=== PATIENT | male | born 1950 | race American Indian/Alaskan Native ===

== ENCOUNTER 2017-01-16 10:07 | Inpatient (IN) | payer MEDICARE ==
[2017-01-16] MEDS ORDERED: MILK OF MAGNESIA PO PRN (10:15)
[2017-01-16] MEDS ORDERED: DULCOLAX PR PRN (10:15)
[2017-01-16] MEDS ORDERED: ZOFRAN IV PRN (10:15)
[2017-01-16] MEDS ORDERED: VANCOMYCIN/NS 1 GM/250 ML 1 GM/250 ML BAG IV SCH (12:00)
[2017-01-16] MEDS ORDERED: ZOSYN/NS 4.5GM/100ML 4.5 GM/100 ML VIAL IV SCH (14:00)
[2017-01-16 15:52] LABS: Basophils % (Auto) 0.5 % (0.0-1.8); Eosinophils % (Auto) 1.4 % (0.0-4.3); Hematocrit 26.4 % (35.5-45.6); Hemoglobin 8.6 gm/dl (11.8-15.2); Mean Corpuscular HGB Conc 33 % (32-34); Mean Corpuscular Hemoglobin 29 pg (28-32); Mean Corpuscular Volume 89 fl (84-94); Platelet Count 277 K/mm3 (140-440); Red Blood Count 2.97 M/mm3 (3.65-5.03); Red Cell Distribution Width 17.2 % (13.2-15.2); White Blood Count 5.9 K/mm3 (4.5-11.0)
[2017-01-16] MEDS ORDERED: VANCOMYCIN 1,500 MG in NACL 0.9% 500 ML 500 ML IV ONE ×2 (16:00→20:00)
[2017-01-16 16:02] LABS: INR 1.16 (0.87-1.13); Partial Thromboplastin Time 29.7 Sec. (24.2-36.6)
[2017-01-16 16:13] LABS: Albumin 3.4 g/dL (3.9-5); Albumin/Globulin Ratio 0.8 %; BUN/Creatinine Ratio 3.63; Bilirubin,Total 0.4 mg/dL (0.1-1.2); Calcium 8.9 mg/dL (8.4-10.2); Chloride 92.4 mmol/L (98-107); Potassium 3.5 mmol/L (3.6-5.0); Total Protein 7.7 g/dL (6.3-8.2)
[2017-01-16] MEDS ORDERED: NACL ONE (16:38)
[2017-01-16] MEDS ORDERED: ZOSYN/NS 2.25 GM/50ML 2.25 GM/50 ML BAG IV SCH (17:00)
--- NOTE | 2017-01-16 17:56 | Cat Scan Report ---
FINAL REPORT EXAM: CT LOWER EXTREMITY RT W CON HISTORY: r/o gas gangrene TECHNIQUE: Serial axial images through the feet with coronal and sagittal reconstruction of right foot and coronal reconstruction of the left foot. PRIORS: None. FINDINGS: The distal aspect of the left toes are cropped from the topography of the study. Atherosclerotic calcifications are noted bilaterally. No drainable fluid collection is identified in the soft tissues. Small amount of gas density is seen beneath nail of the right great toe, but otherwise no gas collections are seen in the soft tissues. No acute fracture or subluxation is identified. There is indistinct cortical bone in superior lateral aspect of the proximal 1st phalanx. IMPRESSION: 1. Small amount of gas is seen beneath the nail of right great toe. No other gas collections are identified. 2. Indistinct cortex is noted in proximal portion of proximal phalanx of right great toe. Possibility of osteomyelitis is not excluded. 3. Diffuse atherosclerotic changes are noted.
[2017-01-16] MEDS: TYLENOL PO PRN (18:06)
--- NOTE | 2017-01-16 20:05 | Consultation ---
History of Present Illness - Reason for Consult Consult date: 01/16/17 Medical management Requesting physician: OLGA LIDIA SANCHEZ - History of Present Illness 66 y/o AAF admitted for pre gangrene changes and rest pain in rt foot.Patient to get Angiography and possible stents or by pass in RLE.Pain is 8/10 in RLE and unable to stand.No fever /chills Past History Past Medical History: ESRD, GERD, hypertension, hyperlipidemia Past Surgical History: Other Social history: lives with family, smoking (1 ppd) Family history: hypertension Medications and Allergies Allergies Allergy/AdvReac Type Severity Reaction Status Date / Time No Known Allergies Allergy Unverified 01/16/17 10:30 Home Medications Medication Instructions Recorded Confirmed Last Taken Type Coreg 25 mg PO BID 01/16/17 01/16/17 01/16/17 09:00 History Donepezil [Aricept] 5 mg PO HS 01/16/17 01/16/17 01/15/17 21:00 History Ibuprofen [Motrin 800 MG tab] 800 mg PO Q6H PRN 01/16/17 01/16/17 Unknown History Isosorbide Dinitrate 20 mg PO DAILY 01/16/17 01/16/17 01/16/17 09:00 History Omeprazole 40 mg PO BIDAC 01/16/17 01/16/17 01/16/17 09:00 History Renvela 800 mg PO TID 01/16/17 01/16/17 01/16/17 09:00 History 800 mg Simvastatin [Zocor TAB] 20 mg PO QHS 01/16/17 01/16/17 01/15/17 21:00 History Verapamil 120 mg PO DAILY 01/16/17 01/16/17 01/16/17 09:00 History Active Meds: Active Medications Acetaminophen (Tylenol) 650 mg PO Q4H PRN PRN Reason: Pain MILD(1-3)/Fever >100.5/ELIZABETH Last Admin: 01/16/17 18:06 Dose: 650 mg Bisacodyl (Dulcolax) 10 mg [place] QDAY PRN PRN Reason: Constipation unrelieved by MOM Sodium Chloride (Nacl 0.9% 1000 Ml) 1,000 mls @ 75 mls/hr IV DIRECT KEN Vancomycin HCl 1,500 mg/ (Sodium Chloride) 515 mls @ 333.333 mls/hr IV ONCE ONE Stop: 01/16/17 21:32 Piperacillin Sod/Tazobactam Sod (Zosyn/Ns 2.25 Gm/50ml) 2.25 gm in 50 mls @ 100 mls/hr IV Q8HR KEN Magnesium Hydroxide (Milk Of Magnesia) 30 ml PO Q4H PRN PRN Reason: Constipation Ondansetron HCl (Zofran) 4 mg IV Q8H PRN PRN Reason: N/V unrelieved by Reglan Review of Systems All systems: negative Musculoskeletal: shooting leg pain, other (pre to Gangrenous changes in Rt Fore Foot with small ulceration of grt toe) Exam - Constitutional Vitals: Temp Pulse Resp BP Pulse Ox 98.2 F 62 20 145/50 96 01/16/17 14:17 01/16/17 14:17 01/16/17 14:17 01/16/17 14:17 01/16/17 14:17 General appearance: Present: no acute distress, well-nourished - EENT Eyes: Present: PERRL ENT: hearing intact, clear oral mucosa - Neck Neck: Present: supple, normal ROM - Respiratory Respiratory effort: normal Respiratory: bilateral: CTA - Cardiovascular Heart Sounds: Present: S1 & S2. Absent: rub, click - Extremities Extremities: No edema Extremity abnormal: black (Rt Foot nallely forefoot), pulses diminished (Rt foot) Peripheral Pulses: abnormal (Rt foot decreased pulses) - Abdominal General gastrointestinal: Present: soft, non-tender, non-distended, normal bowel sounds Male genitourinary: Present: normal - Integumentary Integumentary: Present: clear, warm, dry - Musculoskeletal Musculoskeletal: gait normal, strength equal bilaterally - Psychiatric Psychiatric: appropriate mood/affect, intact judgment & insight - Neurologic Neurologic: CNII-XII intact, moves all extremities Results - Labs CBC & Chem 7: 01/16/17 15:31 01/16/17 15:31 Labs: Abnormal lab results 01/16/17 01/16/17 01/16/17 Range/Units 15:31 15:31 15:31 RBC 2.97 L (3.65-5.03) M/mm3 Hgb 8.6 L (11.8-15.2) gm/dl Hct 26.4 L (35.5-45.6) % RDW 17.2 H (13.2-15.2) % [place] % (Auto) 8.2 H (0.0-7.3) % Lymph # 0.9 L (1.2-5.4) K/mm3 Seg Neutrophils % 75.5 H (40.0-70.0) % INR 1.16 H (0.87-1.13) Potassium 3.5 L (3.6-5.0) mmol/L Chloride 92.4 L (98-107) mmol/L BUN 28 H (9-20) mg/dL Creatinine 7.7 H (0.8-1.5) mg/dL Glucose 228 H (75-100) mg/dL POC Glucose (70-105) Albumin 3.4 L (3.9-5) g/dL 01/16/17 Range/Units 16:39 RBC (3.65-5.03) M/mm3 Hgb (11.8-15.2) gm/dl Hct (35.5-45.6) % RDW (13.2-15.2) % [place] % (Auto) (0.0-7.3) % Lymph # (1.2-5.4) K/mm3 Seg Neutrophils % (40.0-70.0) % INR (0.87-1.13) Potassium (3.6-5.0) mmol/L Chloride (98-107) mmol/L BUN (9-20) mg/dL Creatinine (0.8-1.5) mg/dL Glucose (75-100) mg/dL POC Glucose 198 H (70-105) Albumin (3.9-5) g/dL - Imaging and Cardiology EKG: report reviewed Venous US: report reviewed (Arterial duplex-BLE ARTERIAL DUPLEX WITH JOHANNY'S DONE BEDSIDE.MINIMAL TO MODERATE AMOUNT OF FIBROCALCIFIED PLAQUES SEEN THROUGHOUT VESSELS VESSELS VISUALIZED NALLELY. IN THE RLE VESSELS.MONOPHASIC WAVEFORMS OBTAINED FROM THE RT.PX SFA UP TO THE RT.DS FOOD ADVISER/ALEX/DPA AND ALSO IN THE LT.CALF VESSELS . RESTING JOHANNY'S DONE BECAUSE THE PATIENT CANNOT TOLERATE STANDING ON THE RT.FOOT.JOHANNY'S: N/C BILAT.;TBI'S: RT-1.52;LT-0.94.) Assessment and Plan - Patient Problems (1) PAD (peripheral artery disease) Current Visit: Yes Status: Acute Plan to address problem: Severe.For Angiography and surgical intervention by IR/Vascular surgery (2) Gangrene Current Visit: Yes Status: Chronic Plan to address problem: On IV zosyn and vancomycin (3) ESRD (end stage renal disease) Current Visit: Yes Status: Chronic Plan to address problem: Nephrology consulted (4) HTN (hypertension) Current Visit: Yes Status: Acute Qualifiers: Hypertension type: H Plan to address problem: Cont Coreg and verapamil (5) HLD (hyperlipidemia) Current Visit: Yes Status: Chronic Qualifiers: Hyperlipidemia type: mixed hyperlipidemia Qualified Code(s): E78.2 - Mixed hyperlipidemia Plan to address problem: On Statins (6) GERD (gastroesophageal reflux disease) Current Visit: Yes Status: Chronic Qualifiers: Esophagitis presence: without esophagitis Qualified Code(s): K21.9 - Gastro -esophageal reflux disease without esophagitis Plan to address problem: Cont PPI's (7) DVT prophylaxis Current Visit: Yes Status: Acute Plan to address problem: on Heparin
[2017-01-16] MEDS ORDERED: VANCOMYCIN PHARMACY TO DOSE IV SCH (21:00)
[2017-01-16] MEDS: ZOSYN/NS 2.25 GM/50ML 2.25 GM/50 ML BAG IV SCH (23:00)
[2017-01-17] MEDS: TYLENOL PO PRN ×2 (00:06→22:14)
[2017-01-17] MEDS: ZOSYN/NS 2.25 GM/50ML 2.25 GM/50 ML BAG IV SCH ×3 (05:31→22:12)
[2017-01-17] MEDS: NACL 0.9% 1000 ML 1,000 ML IV SCH (05:54)
--- NOTE | 2017-01-17 09:02 | Vascular Lab Report ---
LOWER EXTREMITY ARTERIAL DUPLEX: REASON FOR EXAM: Peripheral arterial disease. COMMENTS ON THE RIGHT: Biphasic waveforms are seen proximally. Monophasic waveforms are seen distally. No significant velocity gradients are identified. Moderate amount of scattered plaque throughout the vessels without identifiable significant focal stenosis. Findings are consistent with abnormal perfusion. Findings are inconclusive with the ability to heal distal wounds. COMMENTS ON THE LEFT: Biphasic waveforms are seen proximally. Monophasic waveforms are seen distally. No significant velocity gradients are identified. Scattered diffuse plaque identified in the throughout the vessel without identifiable focal stenosis. Findings are consistent with abnormal perfusion. Findings are inconclusive with the ability to heal distal wounds. IMPRESSION: RIGHT: Diffuse peripheral vascular disease without identifiable focal stenosis. LEFT:Diffuse peripheral vascular disease without identifiable focal stenosis.
--- NOTE | 2017-01-17 09:04 | Vascular Lab Report ---
LOWER EXTREMITY ARTERIAL PHYSIOLOGIC STUDY: REASON FOR EXAM: Peripheral arterial disease. COMMENTS ON THE RIGHT: Ankle brachial index is not obtainable due to calcification. This value is abnormal. Toe brachial index is 1.5 to. This value is abnormally elevated. Wound healing is inconclusive. Pulse volume recording at the level of the ankle is abnormal. Exercise testing was not done. COMMENTS ON THE LEFT: Ankle brachial index is not obtainable due to calcification. This value is abnormal. Toe brachial index is 0.94. This value is normal. Wound healing is likely. Pulse volume recording at the level of the ankle is normal. Exercise testing was not done. IMPRESSION: RIGHT: Abnormal study without identifiable hemodynamically significant stenosis LEFT:Calcified nonocclusive peripheral vascular disease with what appears to be adequate flow to the foot. Clinical correlation is recommended.
[2017-01-17] MEDS: HEPARIN SUB-Q SCH ×2 (09:43→22:11)
[2017-01-17] MEDS: COREG PO SCH ×2 (10:00→22:10)
[2017-01-17] MEDS: PROTONIX PO SCH (10:00)
[2017-01-17] MEDS: MONOKET PO SCH (10:00)
[2017-01-17] MEDS: CALAN SR PO SCH ×2 (10:00→22:10)
--- NOTE | 2017-01-17 10:17 | Consultation ---
History of Present Illness - Reason for Consult Consult date: 01/17/17 Infection RLE Requesting physician: OLGA LIDIA SANCHEZ - History of Present Illness Mr. Medeiros is a 66-year-old man with ESRD on HD and PVD admitted for evaluation and treatment of a right foot pain and possible infection. A CT scan of the right lower extremity showed gas underneath the nail of the great toe and possible osteomyelitis. Doppler studies showed diffuse peripheral vascular disease without a stenotic focus. He is prescribed Vancomycin and Zosyn empirically. He underwent balloon angioplasty and atherectomy of the right lower extremity earlier today. ID consultation is requested for further treatment recommendations. Past History Past Medical History: ESRD, GERD, hypertension, hyperlipidemia Past Surgical History: Other Social history: lives with family, smoking (1 ppd) Family history: hypertension Medications and Allergies Allergies Allergy/AdvReac Type Severity Reaction Status Date / Time No Known Allergies Allergy Unverified 01/16/17 10:30 Home Medications Medication Instructions Recorded Confirmed Last Taken Type Coreg 25 mg PO BID 01/16/17 01/16/17 01/16/17 09:00 History Donepezil [Aricept] 5 mg PO HS 01/16/17 01/16/17 01/15/17 21:00 History Ibuprofen [Motrin 800 MG tab] 800 mg PO Q6H PRN 01/16/17 01/16/17 Unknown History Isosorbide Dinitrate 20 mg PO DAILY 01/16/17 01/16/17 01/16/17 09:00 History Omeprazole 40 mg PO BIDAC 01/16/17 01/16/17 01/16/17 09:00 History Renvela 800 mg PO TID 01/16/17 01/16/17 01/16/17 09:00 History 800 mg Simvastatin [Zocor TAB] 20 mg PO QHS 01/16/17 01/16/17 01/15/17 21:00 History Verapamil 120 mg PO DAILY 01/16/17 01/16/17 01/16/17 09:00 History Active Meds: Active Medications Acetaminophen (Tylenol) 650 mg PO Q4H PRN PRN Reason: Pain MILD(1-3)/Fever >100.5/ELIZABETH Last Admin: 01/17/17 00:06 Dose: 650 mg Bisacodyl (Dulcolax) 10 mg [place] QDAY PRN PRN Reason: Constipation unrelieved by MOM Carvedilol (Coreg) 25 mg PO BID KEN Donepezil HCl (Aricept) 5 mg PO HS KEN Heparin Sodium (Porcine) (Heparin) 5,000 unit SUB-Q Q12HR KEN Last Admin: 01/17/17 09:43 Dose: 5,000 unit Sodium Chloride (Nacl 0.9% 1000 Ml) 1,000 mls @ 75 mls/hr IV DIRECT KEN Last Admin: 01/17/17 05:54 Dose: 75 mls/hr Piperacillin Sod/Tazobactam Sod (Zosyn/Ns 2.25 Gm/50ml) 2.25 gm in 50 mls @ 100 mls/hr IV Q8HR [facility] Last Admin: 01/17/17 05:31 Dose: 100 mls/hr Isosorbide Mononitrate (Monoket) 20 mg PO DAILY [facility] Magnesium Hydroxide (Milk Of Magnesia) 30 ml PO Q4H PRN PRN Reason: Constipation Ondansetron HCl (Zofran) 4 mg IV Q8H PRN PRN Reason: N/V unrelieved by Reglan Pantoprazole Sodium (Protonix) 40 mg PO DAILY KEN Sevelamer Carbonate (Renvela) 800 mg PO AC KEN Simvastatin (Zocor) 20 mg PO QHS KEN Vancomycin HCl (Vancomycin Pharmacy To Dose) 1 each IV PKCONSULT KEN Verapamil HCl (Calan Sr) 120 mg PO Q12HR [facility] Review of Systems ROS unobtainable: due to mental status (immediately post-op/ sedated) Physical Examination - Constitutional Vitals: Vital Signs Temp Pulse Resp BP Pulse Ox 98.3 F 71 20 154/59 96 01/16/17 22:00 01/16/17 22:00 01/16/17 22:00 01/16/17 22:00 01/16/17 22:00 Temperature -Last 24 Hours Temperature 98.3 F Temperature 98.2 F General appearance: Present: no acute distress, other (asleep/ resting comfortably) - Respiratory Respiratory effort: normal Respiratory: bilateral: CTA, negative: rales, rhonchi - Cardiovascular Rhythm: regular - Extremities Extremities: No edema (symmetric warmth and pigmentation of both lower extremities with mild ischemic chnages to the 3rd/4th toes of right foot, no crepitus) - Abdominal General gastrointestinal: Present: soft, non-distended - Integumentary Integumentary: Present: clear. Absent: rash Results - Labs CBC & Chem 7: 01/16/17 15:31 01/16/17 15:31 Labs: Abnormal lab results 01/16/17 01/16/17 01/16/17 Range/Units 15:31 15:31 15:31 RBC 2.97 L (3.65-5.03) M/mm3 Hgb 8.6 L (11.8-15.2) gm/dl Hct 26.4 L (35.5-45.6) % RDW 17.2 H (13.2-15.2) % [place] % (Auto) 8.2 H (0.0-7.3) % Lymph # 0.9 L (1.2-5.4) K/mm3 Seg Neutrophils % 75.5 H (40.0-70.0) % INR 1.16 H (0.87-1.13) Potassium 3.5 L (3.6-5.0) mmol/L Chloride 92.4 L (98-107) mmol/L BUN 28 H (9-20) mg/dL Creatinine 7.7 H (0.8-1.5) mg/dL Glucose 228 H (75-100) mg/dL POC Glucose (70-105) Albumin 3.4 L (3.9-5) g/dL 01/16/17 01/16/17 01/17/17 Range/Units 16:39 21:51 07:24 RBC (3.65-5.03) M/mm3 Hgb (11.8-15.2) gm/dl Hct (35.5-45.6) % RDW (13.2-15.2) % [place] % (Auto) (0.0-7.3) % Lymph # (1.2-5.4) K/mm3 Seg Neutrophils % (40.0-70.0) % INR (0.87-1.13) Potassium (3.6-5.0) mmol/L Chloride (98-107) mmol/L BUN (9-20) mg/dL Creatinine (0.8-1.5) mg/dL Glucose (75-100) mg/dL POC Glucose 198 H 154 H 122 H (70-105) Albumin (3.9-5) g/dL Microbiology 01/16/17 16:14 Peripheral/Venous Blood Culture - Preliminary Culture in Progress 01/16/17 15:31 Peripheral/Venous Blood Culture - Preliminary Culture in Progress Assessment and Plan - Patient Problems (1) PAD (peripheral artery disease) Current Visit: Yes Status: Acute Plan to address problem: 1. Patient is now s/p revascularization of his right lower extremity. 2. He is on empiric Vancomycin and Zosyn. I would continue these empirically while monitoring resolution of pain and ischemic changes of right foot. 3. Further antibiotic recommendations based on evolution of foot changes.
[2017-01-17] MEDS ORDERED: HEPARIN/NS 5000 UNIT/500ML(CATH LAB) 1,000 ML IR ONE (10:22)
[2017-01-17] MEDS ORDERED: XYLOCAINE 2% INFILTRATI ONE (10:23)
[2017-01-17] MEDS ORDERED: ANCEF/STERILE WATER 2 GM/20 ML 2 GM/20 ML SYRINGE IV ONE (10:24)
[2017-01-17] MEDS ORDERED: NACL 0.9% 250ML 250 ML ONE (10:25)
[2017-01-17] MEDS ORDERED: HEPARIN ONE (10:41)
[2017-01-17] MEDS: SUBLIMAZE ONE ×5 (10:45→11:51)
[2017-01-17] MEDS: VERSED ONE ×5 (10:45→11:51)
[2017-01-17] MEDS ORDERED: NACL 0.9% 1000 ML 1,000 ML ONE (11:00)
[2017-01-17] MEDS: HEPARIN 10,000 UNITS/10 ML ONE ×2 (11:04→11:55)
[2017-01-17] MEDS: RENVELA PO SCH ×2 (11:30→17:34)
[2017-01-17] MEDS: BENADRYL ONE ×2 (11:33→11:48)
--- NOTE | 2017-01-17 12:35 | Operative Report ---
Operative Report Operative Report: EXAM: RIGHT LOWER EXTREMITY REVASCULARIZATION CLINICAL INDICATION: PERIPHERAL VASCULAR DISEASE WITH REST PAIN DATE: 01/17/2017 PROCEDURE: Following an explanation of the risks, benefits and alternatives; written informed consent was obtained. The patient was brought to the angiographic suite and placed in supine position on the examination table. Initial ultrasound evaluation of the left leg demonstrated a patent left common femoral artery. The patient's left groin was prepped and draped in the usual sterile fashion. 1% lidocaine was used for anesthesia. Under ultrasound guidance, the left common femoral artery was cannulated with a 7 cm 21-gauge needle. A 0.018 guidewire was advanced centrally. The needle was removed and a micro-sheath placed. The 0.018 guidewire was exchanged for a 0.035 guidewire in the micro-sheath exchanged for a 5 [place]ian vascular sheath. An Omni flush catheter was placed over the guidewire advanced to the distal abdominal aorta. Angiography was performed at that point. This demonstrates a patent distal abdominal aorta, bilateral common iliac arteries and bilateral external iliac arteries. The bifurcation was crossed using the Omni flush catheter and guidewire and the catheter tip positioned in the distal right external iliac artery. Angiography was performed which demonstrates scattered arthroscopic disease involving the right common femoral artery with 20% luminal narrowing. There is 50% stenosis involving the origin of the SFA. The profundus is patent. The catheter was advanced over the guidewire into the proximal SFA. Imaging of the SFA was then performed which demonstrates significant diffuse atherosclerotic disease involving the entire SFA narrowing the lumen at times to within 80%. The proximal popliteal artery also demonstrates diffuse atherosclerotic disease. Within the distal popliteal artery tibioperoneal trunk and below the knee vessels, there is under filling secondary to decreased inflow. The Omni flush catheter was removed over the guidewire and a 4 [place] vertebral catheter advanced over the guidewire. Together the guidewire and catheter were advanced into the tibioperoneal trunk. The guidewire was removed and a 5 mm spider wire advanced through the vertebral catheter and positioned within the distal popliteal artery. The vertebral catheter was removed. Atherectomy was performed using a 2.1/3.0 OPHTHONIX atherectomy device. Atherectomy was performed using both blades up and blades down technique within the SFA and blades down technique in the popliteal artery. Posterior atherectomy angioplasty was performed using a 4 mm balloon in the popliteal artery and a 5 mm balloon throughout the length of the SFA. Post atherectomy imaging demonstrated scattered areas of luminal narrowing of 20-30%. At this point, 3 millimeter by 100 mm Lutonix drug-coated balloons deployed in the proximal mid and distal SFA. The balloons were insufflated to nominal pressure for 3 minutes each. Post and requesting imaging demonstrated reduction of the persistent areas of scattered luminal narrowing to 10-20%. At this point, the catheters, guidewires and sheaths were removed and hemostasis achieved using an Angio-Seal arterial closure device. A sterile dressing was then applied. The patient tolerated the procedure well. There were no immediate post procedure complications. Conscious sedation was performed under the guidance of radiologic nursing. Continuous cardiopulmonary monitering was utilized. IMPRESSION: 1) Right lower extremity angiography and aortography demonstrating diffuse hemodynamically significant stenosis involving the length of the SFA and popliteal artery. 2) Revascularization of the right SFA and popliteal arteries using atherectomy, angioplasty and drug coated balloons.
--- NOTE | 2017-01-17 13:31 | Progress Note ---
Assessment and Plan Assessment and plan: Peripheral vascular disease. Patient for surgical intervention per vascular surgery. Gangrene. Continue IV antibiotics. ID consultation. ESRD. Nephrology consultation. Continue hemodialysis. Hypertension. Continue Coreg and verapamil. Hyperlipidemia. Continue statins. GERD. Continue PPIs. DVT prophylaxis. Continue heparin. History Interval history: No new issues overnight. Hospitalist Physical - Constitutional Vitals: Temp Pulse Resp BP Pulse Ox 98.3 F 71 18 150/56 97 01/17/17 10:00 01/17/17 10:00 01/17/17 10:00 01/17/17 10:00 01/17/17 10:00 General appearance: Present: no acute distress, other (asleep/ resting comfortably) - EENT Eyes: Present: PERRL, EOM intact ENT: hearing intact, clear oral mucosa, dentition normal - Neck Neck: Present: supple, normal ROM - Respiratory Respiratory effort: normal Respiratory: bilateral: CTA - Cardiovascular Rhythm: regular Heart Sounds: Present: S1 & S2. Absent: gallop, rub - Extremities Extremities: no ischemia, No edema, Full ROM - Abdominal General gastrointestinal: soft, non-tender, non-distended, normal bowel sounds - Integumentary Integumentary: Present: clear, warm, dry - Neurologic Neurologic: CNII-XII intact, moves all extremities Results - Labs CBC & Chem 7: 01/16/17 15:31 01/16/17 15:31 Labs: Laboratory Last Values WBC 5.9 K/mm3 (4.5-11.0) 01/16/17 15:31 RBC 2.97 M/mm3 (3.65-5.03) L 01/16/17 15:31 Hgb 8.6 gm/dl (11.8-15.2) L 01/16/17 15:31 Hct 26.4 % (35.5-45.6) L 01/16/17 15:31 MCV 89 fl (84-94) 01/16/17 15:31 MCH 29 pg (28-32) 01/16/17 15:31 MCHC 33 % (32-34) 01/16/17 15:31 RDW 17.2 % (13.2-15.2) H 01/16/17 15:31 Plt Count 277 K/mm3 (140-440) 01/16/17 15:31 Lymph % (Auto) 14.4 % (13.4-35.0) 01/16/17 15:31 [place] % (Auto) 8.2 % (0.0-7.3) H 01/16/17 15:31 Eos % (Auto) 1.4 % (0.0-4.3) 01/16/17 15:31 Baso % (Auto) 0.5 % (0.0-1.8) 01/16/17 15:31 Lymph # 0.9 K/mm3 (1.2-5.4) L 01/16/17 15:31 [place] # 0.5 K/mm3 (0.0-0.8) 01/16/17 15:31 Eos # 0.1 K/mm3 (0.0-0.4) 01/16/17 15:31 Baso # 0.0 K/mm3 (0.0-0.1) 01/16/17 15:31 Seg Neutrophils % 75.5 % (40.0-70.0) H 01/16/17 15:31 Seg Neutrophils # 4.5 K/mm3 (1.8-7.7) 01/16/17 15:31 PT 14.7 Sec. (12.2-14.9) 01/16/17 15:31 INR 1.16 (0.87-1.13) H 01/16/17 15:31 APTT 29.7 Sec. (24.2-36.6) 01/16/17 15:31 Sodium 138 mmol/L (137-145) 01/16/17 15:31 Potassium 3.5 mmol/L (3.6-5.0) L 01/16/17 15:31 Chloride 92.4 mmol/L (98-107) L 01/16/17 15:31 Carbon Dioxide 25 mmol/L (22-30) 01/16/17 15:31 Anion Gap 24 mmol/L 01/16/17 15:31 BUN 28 mg/dL (9-20) H 01/16/17 15:31 Creatinine 7.7 mg/dL (0.8-1.5) H 01/16/17 15:31 Estimated GFR 9 ml/min 01/16/17 15:31 BUN/Creatinine Ratio 3.63 % 01/16/17 15:31 Glucose 228 mg/dL (75-100) H 01/16/17 15:31 POC Glucose 122 (70-105) H 01/17/17 07:24 Calcium 8.9 mg/dL (8.4-10.2) 01/16/17 15:31 Total Bilirubin 0.40 mg/dL (0.1-1.2) 01/16/17 15:31 AST 15 units/L (5-40) 01/16/17 15:31 ALT 8 units/L (7-56) 01/16/17 15:31 Alkaline Phosphatase 110 units/L (35-129) 01/16/17 15:31 Total Protein 7.7 g/dL (6.3-8.2) 01/16/17 15:31 Albumin 3.4 g/dL (3.9-5) L 01/16/17 15:31 Albumin/Globulin Ratio 0.8 % 01/16/17 15:31
--- NOTE | 2017-01-17 14:02 | Consultation ---
History of Present Illness - Reason for Consult Consult date: 01/17/17 end stage renal disease - History of Present Illness Mr. Medeiros is a 66yo with ESRD on HD MWF admitted for surgical evaluation of right foot rest pain. CT of RLE was obtained and concerning for probable osteomyelitis. He is s/p angiography and aortography demonstrating diffuse hemodynamically significant stenosis involving the length of the SFA and popliteal artery. He is s/p revascularization of the right SFA and popliteal arteries using atherectomy, angioplasty and drug coated balloons. Nephrology consultation requested by primary team. Past History Past Medical History: ESRD, GERD, hypertension, hyperlipidemia Past Surgical History: Other Social history: lives with family, smoking (1 ppd) Family history: hypertension Medications and Allergies Allergies Allergy/AdvReac Type Severity Reaction Status Date / Time No Known Allergies Allergy Unverified 01/16/17 10:30 Home Medications Medication Instructions Recorded Confirmed Last Taken Type Coreg 25 mg PO BID 01/16/17 01/16/17 01/16/17 09:00 History Donepezil [Aricept] 5 mg PO HS 01/16/17 01/16/17 01/15/17 21:00 History Ibuprofen [Motrin 800 MG tab] 800 mg PO Q6H PRN 01/16/17 01/16/17 Unknown History Isosorbide Dinitrate 20 mg PO DAILY 01/16/17 01/16/17 01/16/17 09:00 History Omeprazole 40 mg PO BIDAC 01/16/17 01/16/17 01/16/17 09:00 History Renvela 800 mg PO TID 01/16/17 01/16/17 01/16/17 09:00 History 800 mg Simvastatin [Zocor TAB] 20 mg PO QHS 01/16/17 01/16/17 01/15/17 21:00 History Verapamil 120 mg PO DAILY 01/16/17 01/16/17 01/16/17 09:00 History Active Meds: Active Medications Acetaminophen (Tylenol) 650 mg PO Q4H PRN PRN Reason: Pain MILD(1-3)/Fever >100.5/ELIZABETH Last Admin: 01/17/17 00:06 Dose: 650 mg Bisacodyl (Dulcolax) [address] QDAY PRN PRN Reason: Constipation unrelieved by MOM Carvedilol (Coreg) 25 mg PO BID KEN Last Admin: 01/17/17 10:00 Dose: Not Given Donepezil HCl (Aricept) 5 mg PO HS [facility] Heparin Sodium (Porcine) (Heparin) 5,000 unit SUB-Q Q12HR [facility] Last Admin: 01/17/17 09:43 Dose: 5,000 unit Sodium Chloride (Nacl 0.9% 1000 Ml) 1,000 mls @ 75 mls/hr IV DIRECT [facility] Last Admin: 01/17/17 05:54 Dose: 75 mls/hr Piperacillin Sod/Tazobactam Sod (Zosyn/Ns 2.25 Gm/50ml) 2.25 gm in 50 mls @ 100 mls/hr IV Q8HR [facility] Last Admin: 01/17/17 05:31 Dose: 100 mls/hr Isosorbide Mononitrate (Monoket) 20 mg PO DAILY [facility] Last Admin: 01/17/17 10:00 Dose: Not Given Magnesium Hydroxide (Milk Of Magnesia) 30 ml PO Q4H PRN PRN Reason: Constipation Ondansetron HCl (Zofran) 4 mg IV Q8H PRN PRN Reason: N/V unrelieved by Quang Pantoprazole Sodium (Protonix) 40 mg PO DAILY [facility] Last Admin: 01/17/17 10:00 Dose: Not Given Sevelamer Carbonate (Renvela) 800 mg PO AC [facility] Last Admin: 01/17/17 11:30 Dose: Not Given Simvastatin (Zocor) 20 mg PO QHS [facility] Vancomycin HCl (Vancomycin Pharmacy To Dose) 1 each IV PKCONSULT [facility] Verapamil HCl (Calan Sr) 120 mg PO Q12HR [facility] Last Admin: 01/17/17 10:00 Dose: Not Given Review of Systems Constitutional: no fever, no chills Cardiovascular: no chest pain, no shortness of breath Respiratory: no cough, no dyspnea on exertion Gastrointestinal: no abdominal pain, no nausea, no vomiting, no diarrhea, no constipation Musculoskeletal: other (leg pain, right) Integumentary: no rash Exam - Vital Signs Vital signs: Vital Signs Temp Pulse Resp BP Pulse Ox 98.2 F 62 20 145/50 96 01/16/17 14:17 01/16/17 14:17 01/16/17 14:17 01/16/17 14:17 01/16/17 14:17 - General Appearance General appearance: well-developed, well-nourished EENT: ATNC Respiratory: Clear to Ascultation Heart: regular, S1S2 Gastrointestinal: Present: normal. Absent: tenderness, distended Musculoskeletal: Present: other (no edema) Psychiatric: cooperative Results - Lab Results 01/16/17 15:31 01/16/17 15:31 Most recent lab results Calcium 8.9 mg/dL (8.4-10.2) 01/16/17 15:31 Assessment and Plan Impression: * End stage renal disease on hemodialysis MWF * Peripheral artery disease --s/p RLE revascularization w/ atherectomy, angioplasty and drug coated balloons. * Questionable osteomyelitis * Hypertension * Anemia secondary to ESRD Plan: * Hemodialysis today * UF as tolerated * Abx per ID * Vascular surgery following * Continue antiHTN medications * Epogen for goal Hb 10-12 * Renal diet
[2017-01-17] MEDS ORDERED: NACL 0.9% 100 ML IV PRN (15:20)
--- NOTE | 2017-01-17 16:29 | Admit Criteria Form ---
Admission Criteria Documentation: VASCULAR DISEASE GRG Clinical Indications for Admission to Inpatient Care (Place 'X' for any and all applicable criteria): Hospital admission is needed for appropriate care of the patient because of ANY ONE of the following (1)(2)(3)(4): [ ]I. Life-threatening or limb-threatening skin ulcer as indicated by ANY ONE of the following(5): [ ]a) Surrounding cellulitis unresponsive to outpatient treatment [ ]b) Wet gangrene [ ]c) Lymphangitis [ ]d) Bacteremia [X]II. Gangrene requiring intensity and frequency of care not manageable to outpatient, emergency, or observation level of care(5) [ ]III. Severe pain requiring acute inpatient management [ ]IV. Interventional revascularization (eg, surgery, thrombolysis) needed (eg , critical limb ischemia)(21) [ ]V. Urgent inpatient IV anticoagulation needed due to ALL of the following: [ ]a) Temporary subtherapeutic anticoagulation unacceptable because of high risk of short-term venous or arterial thromboembolism due to ANY ONE of the following(7)(8)(9): [ ]i) Venous thromboembolism within the past 12 months [ ]ii) Underlying malignancy [ ]iii) Patient with mechanical cardiac valve(10)(11) [ ]iv) Underlying hypercoagulable state (eg, protein C or protein S deficiency, antithrombin deficiency, antiphospholipid antibodies) [ ]v) Patient at high risk of thromboembolism (eg, status post orthopedic surgery, history of recurrent venous thromboembolism) [ ]vi) Atrial fibrillation with rheumatic valvular heart disease [ ]vii) Atrial fibrillation with 3 or MORE of the following : [ ]1) Congestive heart failure [ ]2) Hypertension [ ]3) Age 65 years or older [ ]4) Diabetes mellitus [ ]5) History of thromboembolism (eg, stroke, TIA , or systemic embolization) more than 3 months ago [ ]6) Female gender [ ]b) Contraindications to outpatient use of "bridging" agent or alternative oral anticoagulant as indicated by ALL of the following: [ ]i) Contraindication to outpatient use of low-molecular -weight heparin as "bridging" agent as indicated by ANY ONE of the following(8) : [ ]1) Documented current or history of heparin- induced thrombocytopenia(12) [ ]2) Severe thrombocytopenia (eg, platelet count less than 50,000/mm3 (50 x109/L)) [ ]3) Documented allergy to heparin, low- molecular-weight heparin, or pork products [ ]4) Renal failure (creatinine clearance < 30 mL /min/1.73m2 (0.50 mL/sec/1.73m2) or on dialysis) [ ]5) Inability to manage self-injection (eg, by patient, caregiver, or visiting nurse) [ ]ii) Contraindication to outpatient use of fondaparinux as "bridging" agent as indicated by ANY ONE of the following(13)(14)(15)(16): [ ]1) Severe thrombocytopenia (eg, platelet count less than 50,000/mm3 (50 x109/L)) [ ]2) Hypersensitivity to fondaparinux, related drugs, or product components [ ]3) Renal failure (creatinine clearance less than 30 mL/min/1.73m2 (0.50 mL/sec/1.73m2) or on dialysis) [ ]4) Inability to manage self-injection (eg, by patient, caregiver, or visiting nurse) [ ]iii) Oral direct thrombin inhibitor (eg, dabigatran) or oral coagulation factor Xa inhibitor (eg, rivaroxaban) not appropriate as oral anticoagulation (eg, indication not appropriate) or contraindicated (eg, hypersensitivity, renal failure)(13)(16)(17)(18)(19)(20) [ ]. Suspected severe acute ischemia due to peripheral vascular disease as indicated by ANY ONE of the following(5)(6): [ ]a) Tissue necrosis [ ]b) Severe pain [ ]c) Acute pulselessness [ ]d) Other evidence of acute severe ischemia (eg, lactic acidosis , motor dysfunction) [ ]VII. Acute or newly diagnosed major vessel (eg, aorta) dissection, rupture, or leakage(5)(6)(22)(23) [ ]VIII.Vascular Disease and ALL of the following: [ ]a) Symptom or finding for which emergency and observation care have failed or are not considered appropriate (Use General Criteria: Observation Care as appropriate) [ ]b) Presence of ANY ONE of the following: [ ]i) A General Admission Criteria [ ]ii) A Pediatric General Admission Criteria The original [facility] content created by Rimma Jordan has been revised. The portions of the content which have been revised are identified through the use of italic text or in bold, and [facility] has neither reviewed nor approved the modified material. All other unmodified content is copyright [facility]. Please see references footnoted in the original [facility] edition 2016 Admission Criteria Met: Yes
[2017-01-17] MEDS ORDERED: NACL 0.9 (PRIMING MACHINE ONLY DIALYSIS) MC ONE (19:21)
[2017-01-17] MEDS: ARICEPT PO SCH (22:09)
[2017-01-17] MEDS: ZOCOR PO SCH (22:10)
[2017-01-18 05:49] LABS: Basophils % (Auto) 0.5 % (0.0-1.8); Eosinophils % (Auto) 1.6 % (0.0-4.3); Hematocrit 24.4 % (35.5-45.6); Mean Corpuscular HGB Conc 33 % (32-34); Mean Corpuscular Hemoglobin 29 pg (28-32); Mean Corpuscular Volume 87 fl (84-94); Platelet Count 238 K/mm3 (140-440); Red Cell Distribution Width 16.8 % (13.2-15.2); White Blood Count 5.4 K/mm3 (4.5-11.0)
[2017-01-18 06:10] LABS: Calcium 8.1 mg/dL (8.4-10.2); Chloride 94.6 mmol/L (98-107); Potassium 3.3 mmol/L (3.6-5.0)
[2017-01-18] MEDS: RENVELA PO SCH ×3 (08:37→16:35)
[2017-01-18] MEDS: ZOSYN/NS 2.25 GM/50ML 2.25 GM/50 ML BAG IV SCH ×2 (08:52→14:04)
[2017-01-18] MEDS ORDERED: VANCOMYCIN/NS 1 GM/250 ML 1 GM/250 ML BAG IV ONE (10:00)
[2017-01-18] MEDS: MONOKET PO SCH (10:05)
[2017-01-18] MEDS: PROTONIX PO SCH (10:06)
[2017-01-18] MEDS: CALAN SR PO SCH ×2 (10:06→22:30)
[2017-01-18] MEDS: HEPARIN SUB-Q SCH ×2 (10:08→22:00)
[2017-01-18] MEDS: COREG PO SCH ×2 (10:17→23:15)
--- NOTE | 2017-01-18 12:35 | Progress Note ---
Assessment and Plan Impression: * End stage renal disease on hemodialysis MWF * Peripheral artery disease --s/p RLE revascularization w/ atherectomy, angioplasty and drug coated balloons. * Questionable osteomyelitis * Hypertension * Anemia secondary to ESRD Plan: * Hemodialysis MWF * UF as tolerated * Abx per ID * Vascular surgery following * Continue antiHTN medications * Epogen for goal Hb 10-12 * Renal diet Subjective Date of service: 01/18/17 Interval history: Patient on commode at time of visit. Objective - Exam Narrative Exam: Deferred - Vital Signs Vital signs: Vital Signs - 12hr 01/18/17 01/18/17 10:00 10:06 Temperature 99.2 F Pulse Rate 68 68 Respiratory 18 Rate Blood Pressure 136/41 136/41 O2 Sat by Pulse 98 Oximetry - Lab 01/18/17 05:01 01/18/17 05:01 Most recent lab results Calcium 8.1 mg/dL (8.4-10.2) L 01/18/17 05:01
--- NOTE | 2017-01-18 12:55 | Progress Note ---
Assessment and Plan Assessment and plan: Peripheral vascular disease. s/p RLE revascularization w/ atherectomy, angioplasty and drug coated balloons. Gangrene. ? Osteomyelitis. Continue IV antibiotics. ID consultation. ESRD. Nephrology following. Continue hemodialysis. Hypertension. Continue Coreg and verapamil. Hyperlipidemia. Continue statins. GERD. Continue PPIs. DVT prophylaxis. Continue heparin. History Interval history: No new issues overnight. Hospitalist Physical - Constitutional Vitals: Temp Pulse Resp BP Pulse Ox 99.2 F 68 18 136/41 98 01/18/17 10:00 01/18/17 10:06 01/18/17 10:00 01/18/17 10:06 01/18/17 10:00 General appearance: Present: no acute distress, other (asleep/ resting comfortably) - EENT Eyes: Present: PERRL, EOM intact ENT: hearing intact, clear oral mucosa, dentition normal - Neck Neck: Present: supple, normal ROM - Respiratory Respiratory effort: normal Respiratory: bilateral: CTA - Cardiovascular Rhythm: regular Heart Sounds: Present: S1 & S2. Absent: gallop, rub - Extremities Extremities: no ischemia, No edema, Full ROM - Abdominal General gastrointestinal: soft, non-tender, non-distended, normal bowel sounds - Integumentary Integumentary: Present: clear, warm, dry - Neurologic Neurologic: CNII-XII intact, moves all extremities Results - Labs CBC & Chem 7: 01/18/17 05:01 01/18/17 05:01 Labs: Laboratory Last Values WBC 5.4 K/mm3 (4.5-11.0) 01/18/17 05:01 RBC 2.80 M/mm3 (3.65-5.03) L 01/18/17 05:01 Hgb 8.0 gm/dl (11.8-15.2) L 01/18/17 05:01 Hct 24.4 % (35.5-45.6) L 01/18/17 05:01 MCV 87 fl (84-94) 01/18/17 05:01 MCH 29 pg (28-32) 01/18/17 05:01 MCHC 33 % (32-34) 01/18/17 05:01 RDW 16.8 % (13.2-15.2) H 01/18/17 05:01 Plt Count 238 K/mm3 (140-440) 01/18/17 05:01 Lymph % (Auto) 12.6 % (13.4-35.0) L 01/18/17 05:01 [place] % (Auto) 10.4 % (0.0-7.3) H 01/18/17 05:01 Eos % (Auto) 1.6 % (0.0-4.3) 01/18/17 05:01 Baso % (Auto) 0.5 % (0.0-1.8) 01/18/17 05:01 Lymph # 0.7 K/mm3 (1.2-5.4) L 01/18/17 05:01 [place] # 0.6 K/mm3 (0.0-0.8) 01/18/17 05:01 Eos # 0.1 K/mm3 (0.0-0.4) 01/18/17 05:01 Baso # 0.0 K/mm3 (0.0-0.1) 01/18/17 05:01 Seg Neutrophils % 74.9 % (40.0-70.0) H 01/18/17 05:01 Seg Neutrophils # 4.0 K/mm3 (1.8-7.7) 01/18/17 05:01 PT 14.7 Sec. (12.2-14.9) 01/16/17 15:31 INR 1.16 (0.87-1.13) H 01/16/17 15:31 APTT 29.7 Sec. (24.2-36.6) 01/16/17 15:31 Sodium 140 mmol/L (137-145) 01/18/17 05:01 Potassium 3.3 mmol/L (3.6-5.0) L 01/18/17 05:01 Chloride 94.6 mmol/L (98-107) L 01/18/17 05:01 Carbon Dioxide 30 mmol/L (22-30) 01/18/17 05:01 Anion Gap 19 mmol/L 01/18/17 05:01 BUN 18 mg/dL (9-20) 01/18/17 05:01 Creatinine 6.0 mg/dL (0.8-1.5) H 01/18/17 05:01 Estimated GFR 11 ml/min 01/18/17 05:01 BUN/Creatinine Ratio 3.00 % 01/18/17 05:01 Glucose 123 mg/dL (75-100) H 01/18/17 05:01 POC Glucose 214 (70-105) H 01/18/17 12:16 Calcium 8.1 mg/dL (8.4-10.2) L 01/18/17 05:01 Total Bilirubin 0.40 mg/dL (0.1-1.2) 01/16/17 15:31 AST 15 units/L (5-40) 01/16/17 15:31 ALT 8 units/L (7-56) 01/16/17 15:31 Alkaline Phosphatase 110 units/L (35-129) 01/16/17 15:31 Total Protein 7.7 g/dL (6.3-8.2) 01/16/17 15:31 Albumin 3.4 g/dL (3.9-5) L 01/16/17 15:31 Albumin/Globulin Ratio 0.8 % 01/16/17 15:31
--- NOTE | 2017-01-18 13:48 | Progress Note ---
Assessment and Plan - Patient Problems (1) PAD (peripheral artery disease) Current Visit: Yes Status: Acute Plan to address problem: S/P intervention, improved condition. Observe. (2) Gangrene Current Visit: Yes Status: Chronic Plan to address problem: Local wound care, abx for webspace infection. Subjective Date of service: 01/18/17 Interval history: No complaints. Toes tender but feels better. Objective - Constitutional Vitals: Vital Signs - 12hr 01/18/17 01/18/17 10:00 10:06 Temperature 99.2 F Pulse Rate 68 68 Respiratory 18 Rate Blood Pressure 136/41 136/41 O2 Sat by Pulse 98 Oximetry General appearance: Present: no acute distress - EENT ENT: hearing intact, clear oral mucosa - Neck Neck: supple - Respiratory Respiratory effort: normal Respiratory: bilateral: CTA - Cardiovascular Rhythm: regular (dark toes, pulses diminished, webspace damp, slight odor) Heart Sounds: Present: S1 & S2, gallop Extremity abnormal: pulses diminished - Gastrointestinal Rectal Exam: deferred - Genitourinary Male genitourinary: deferred - Integumentary Integumentary: clear, warm - Musculoskeletal Musculoskeletal: strength equal bilaterally - Psychiatric Psychiatric: appropriate mood/affect, intact judgment & insight, cooperative - Labs CBC & Chem 7: 01/18/17 05:01 01/18/17 05:01 Labs: Abnormal lab results 01/18/17 01/18/17 01/18/17 Range/Units 05:01 05:01 08:29 RBC 2.80 L (3.65-5.03) M/mm3 Hgb 8.0 L (11.8-15.2) gm/dl Hct 24.4 L (35.5-45.6) % RDW 16.8 H (13.2-15.2) % Lymph % (Auto) 12.6 L (13.4-35.0) % [place] % (Auto) 10.4 H (0.0-7.3) % Lymph # 0.7 L (1.2-5.4) K/mm3 Seg Neutrophils % 74.9 H (40.0-70.0) % Potassium 3.3 L (3.6-5.0) mmol/L Chloride 94.6 L (98-107) mmol/L Creatinine 6.0 H (0.8-1.5) mg/dL Glucose 123 H (75-100) mg/dL POC Glucose 152 H (70-105) Calcium 8.1 L (8.4-10.2) mg/dL 01/18/17 Range/Units 12:16 RBC (3.65-5.03) M/mm3 Hgb (11.8-15.2) gm/dl Hct (35.5-45.6) % RDW (13.2-15.2) % Lymph % (Auto) (13.4-35.0) % [place] % (Auto) (0.0-7.3) % Lymph # (1.2-5.4) K/mm3 Seg Neutrophils % (40.0-70.0) % Potassium (3.6-5.0) mmol/L Chloride (98-107) mmol/L Creatinine (0.8-1.5) mg/dL Glucose (75-100) mg/dL POC Glucose 214 H (70-105) Calcium (8.4-10.2) mg/dL
[2017-01-18] MEDS: NOVOLOG SUB-Q SCH ×2 (16:36→22:30)
--- NOTE | 2017-01-18 18:16 | Progress Note ---
Assessment and Plan - Patient Problems (1) PAD (peripheral artery disease) Current Visit: Yes Status: Acute Plan to address problem: 1. Right limb is revascularized. 2. Follow clinically for resolution of ischemic changes with continued empiric antibiotics. Recommend Zosyn while inpatient and oral Clindamycin when patient is ready for discharge. 3. Would continue antibiotics to complete a total of 10-14 days post- operatively. Subjective Date of service: 01/18/17 Principal diagnosis: PVD; Right Foot Ischemia Interval history: Patient remains stable, afebrile. Objective - Constitutional Vitals: Vital Signs Temp Pulse Resp BP Pulse Ox 99.2 F 68 18 136/41 98 01/18/17 10:00 01/18/17 10:06 01/18/17 10:00 01/18/17 10:06 01/18/17 10:00 Temperature -Last 24 Hours Temperature 99.2 F Temperature 98.8 F General appearance: Present: no acute distress - Respiratory Respiratory effort: normal Respiratory: bilateral: CTA Extremities: No edema Extremity abnormal: other (unchanged ischemic areas to right 3rd/4th toes, tender to touch, no increased warmth, no erythema, no fluctuance) - Gastrointestinal General gastrointestinal: Present: soft, non-distended - Integumentary Integumentary: clear, no rash - Neurologic Neurologic: moves all extremities - Psychiatric Psychiatric: other (mild confusion) - Labs CBC & Chem 7: 01/18/17 05:01 01/18/17 05:01 Labs: Abnormal lab results 01/18/17 01/18/17 01/18/17 Range/Units 05:01 05:01 08:29 RBC 2.80 L (3.65-5.03) M/mm3 Hgb 8.0 L (11.8-15.2) gm/dl Hct 24.4 L (35.5-45.6) % RDW 16.8 H (13.2-15.2) % Lymph % (Auto) 12.6 L (13.4-35.0) % [place] % (Auto) 10.4 H (0.0-7.3) % Lymph # 0.7 L (1.2-5.4) K/mm3 Seg Neutrophils % 74.9 H (40.0-70.0) % Potassium 3.3 L (3.6-5.0) mmol/L Chloride 94.6 L (98-107) mmol/L Creatinine 6.0 H (0.8-1.5) mg/dL Glucose 123 H (75-100) mg/dL POC Glucose 152 H (70-105) Calcium 8.1 L (8.4-10.2) mg/dL 01/18/17 01/18/17 Range/Units 12:16 16:24 RBC (3.65-5.03) M/mm3 Hgb (11.8-15.2) gm/dl Hct (35.5-45.6) % RDW (13.2-15.2) % Lymph % (Auto) (13.4-35.0) % [place] % (Auto) (0.0-7.3) % Lymph # (1.2-5.4) K/mm3 Seg Neutrophils % (40.0-70.0) % Potassium (3.6-5.0) mmol/L Chloride (98-107) mmol/L Creatinine (0.8-1.5) mg/dL Glucose (75-100) mg/dL POC Glucose 214 H 210 H (70-105) Calcium (8.4-10.2) mg/dL Microbiology 01/16/17 16:14 Peripheral/Venous Blood Culture - Preliminary NO GROWTH AFTER 24 HOURS 01/16/17 15:31 Peripheral/Venous Blood Culture - Preliminary NO GROWTH AFTER 24 HOURS
[2017-01-18] MEDS: NACL 0.9% 1000 ML 1,000 ML IV SCH (19:25)
[2017-01-18] MEDS: ARICEPT PO SCH (23:15)
[2017-01-18] MEDS: ZOCOR PO SCH (23:17)
[2017-01-18] MEDS: TYLENOL PO PRN (23:22)
[2017-01-19] MEDS: ZOSYN/NS 2.25 GM/50ML 2.25 GM/50 ML BAG IV SCH ×4 (00:06→22:23)
[2017-01-19] MEDS: RENVELA PO SCH ×3 (07:45→16:48)
[2017-01-19] MEDS: NOVOLOG SUB-Q SCH ×4 (07:45→22:26)
[2017-01-19] MEDS: CALAN SR PO SCH ×2 (09:13→22:24)
[2017-01-19] MEDS: COREG PO SCH ×2 (09:13→22:23)
[2017-01-19] MEDS: MONOKET PO SCH (09:13)
[2017-01-19] MEDS: PROTONIX PO SCH (09:13)
[2017-01-19] MEDS: HEPARIN SUB-Q SCH ×2 (09:14→22:25)
--- NOTE | 2017-01-19 10:31 | Progress Note ---
Assessment and Plan Impression: * End stage renal disease on hemodialysis MWF * Peripheral artery disease --s/p RLE revascularization w/ atherectomy, angioplasty and drug coated balloons. * Gangrene, questionable osteomyelitis * Hypertension * Anemia secondary to ESRD Plan: * Hemodialysis MWF * UF as tolerated * Abx per ID * Vascular surgery following * Continue antiHTN medications * Epogen for goal Hb 10-12 * Renal diet Subjective Date of service: 01/19/17 Principal diagnosis: PVD; Right Foot Ischemia Interval history: Patient c/o foot pain. Objective - Vital Signs Vital signs: Vital Signs - 12hr 01/18/17 01/18/17 01/19/17 22:30 23:15 00:01 Temperature 99.1 F Pulse Rate 77 77 77 Respiratory 18 Rate Blood Pressure 146/44 146/44 146/44 O2 Sat by Pulse 82 L Oximetry 01/19/17 01/19/17 09:00 09:13 Temperature 97.9 F Pulse Rate 72 72 Respiratory 18 Rate Blood Pressure 149/53 149/53 O2 Sat by Pulse 97 Oximetry - General Appearance General appearance: well-developed, well-nourished EENT: ATNC Respiratory: Present: Clear to Ascultation Cardiology: regular, S1S2 Gastrointestinal: normal, no tenderness, no distended Neurologic: alert and oriented x3 Musculoskeletal: other (+trace edema) Psychiatric: cooperative - Lab 01/19/17 09:42 01/19/17 09:42 Most recent lab results Calcium 8.1 mg/dL (8.4-10.2) L 01/18/17 05:01
[2017-01-19] MEDS ORDERED: K-DUR PO ONE (11:33)
--- NOTE | 2017-01-19 11:33 | Progress Note ---
Assessment and Plan Assessment and plan: Peripheral vascular disease. s/p RLE revascularization w/ atherectomy, angioplasty and drug coated balloons. Gangrene. ? Osteomyelitis. Continue IV antibiotics. ID consultation. ESRD. Nephrology following. Continue hemodialysis. Anemia of CKD. Continue to monitor H&H and transfuse for hemoglobin less than 7. Continue Epogen. Hypertension. Continue Coreg and verapamil. Hyperlipidemia. Continue statins. Hypokalemia. Replete potassium. GERD. Continue PPIs. DVT prophylaxis. Continue heparin. History Interval history: No new issues overnight. Hospitalist Physical - Constitutional Vitals: Temp Pulse Resp BP Pulse Ox 97.9 F 72 18 149/53 97 01/19/17 09:00 01/19/17 09:13 01/19/17 09:00 01/19/17 09:13 01/19/17 09:00 General appearance: Present: no acute distress - EENT Eyes: Present: PERRL, EOM intact ENT: hearing intact, clear oral mucosa, dentition normal - Neck Neck: Present: supple, normal ROM - Respiratory Respiratory effort: normal Respiratory: bilateral: CTA - Cardiovascular Rhythm: regular Heart Sounds: Present: S1 & S2. Absent: gallop, rub - Extremities Extremities: no ischemia, No edema, Full ROM, abnormal (unchanged ischemic areas to right 3rd/4th toes, tender to touch, no increased warmth, no erythema, no fluctuance) - Abdominal General gastrointestinal: soft, non-tender, non-distended, normal bowel sounds - Integumentary Integumentary: Present: clear, warm, dry - Neurologic Neurologic: CNII-XII intact, moves all extremities Results - Labs CBC & Chem 7: 01/18/17 05:01 01/18/17 05:01 Labs: Laboratory Last Values WBC 5.4 K/mm3 (4.5-11.0) 01/18/17 05:01 RBC 2.80 M/mm3 (3.65-5.03) L 01/18/17 05:01 Hgb 8.0 gm/dl (11.8-15.2) L 01/18/17 05:01 Hct 24.4 % (35.5-45.6) L 01/18/17 05:01 MCV 87 fl (84-94) 01/18/17 05:01 MCH 29 pg (28-32) 01/18/17 05:01 MCHC 33 % (32-34) 01/18/17 05:01 RDW 16.8 % (13.2-15.2) H 01/18/17 05:01 Plt Count 238 K/mm3 (140-440) 01/18/17 05:01 Lymph % (Auto) 12.6 % (13.4-35.0) L 01/18/17 05:01 [place] % (Auto) 10.4 % (0.0-7.3) H 01/18/17 05:01 Eos % (Auto) 1.6 % (0.0-4.3) 01/18/17 05:01 Baso % (Auto) 0.5 % (0.0-1.8) 01/18/17 05:01 Lymph # 0.7 K/mm3 (1.2-5.4) L 01/18/17 05:01 [place] # 0.6 K/mm3 (0.0-0.8) 01/18/17 05:01 Eos # 0.1 K/mm3 (0.0-0.4) 01/18/17 05:01 Baso # 0.0 K/mm3 (0.0-0.1) 01/18/17 05:01 Seg Neutrophils % 74.9 % (40.0-70.0) H 01/18/17 05:01 Seg Neutrophils # 4.0 K/mm3 (1.8-7.7) 01/18/17 05:01 PT 14.7 Sec. (12.2-14.9) 01/16/17 15:31 INR 1.16 (0.87-1.13) H 01/16/17 15:31 APTT 29.7 Sec. (24.2-36.6) 01/16/17 15:31 Sodium 140 mmol/L (137-145) 01/18/17 05:01 Potassium 3.3 mmol/L (3.6-5.0) L 01/18/17 05:01 Chloride 94.6 mmol/L (98-107) L 01/18/17 05:01 Carbon Dioxide 30 mmol/L (22-30) 01/18/17 05:01 Anion Gap 19 mmol/L 01/18/17 05:01 BUN 18 mg/dL (9-20) 01/18/17 05:01 Creatinine 6.0 mg/dL (0.8-1.5) H 01/18/17 05:01 Estimated GFR 11 ml/min 01/18/17 05:01 BUN/Creatinine Ratio 3.00 % 01/18/17 05:01 Glucose 123 mg/dL (75-100) H 01/18/17 05:01 POC Glucose 126 (70-105) H 01/19/17 07:45 Calcium 8.1 mg/dL (8.4-10.2) L 01/18/17 05:01 Total Bilirubin 0.40 mg/dL (0.1-1.2) 01/16/17 15:31 AST 15 units/L (5-40) 01/16/17 15:31 ALT 8 units/L (7-56) 01/16/17 15:31 Alkaline Phosphatase 110 units/L (35-129) 01/16/17 15:31 Total Protein 7.7 g/dL (6.3-8.2) 01/16/17 15:31 Albumin 3.4 g/dL (3.9-5) L 01/16/17 15:31 Albumin/Globulin Ratio 0.8 % 01/16/17 15:31
[2017-01-19 11:58] LABS: Basophils % (Auto) 0.4 % (0.0-1.8); Eosinophils % (Auto) 3.1 % (0.0-4.3); Hematocrit 24.6 % (35.5-45.6); Hemoglobin 7.6 gm/dl (11.8-15.2); Mean Corpuscular HGB Conc 31 % (32-34); Mean Corpuscular Hemoglobin 28 pg (28-32); Mean Corpuscular Volume 91 fl (84-94); Platelet Count 236 K/mm3 (140-440); Red Cell Distribution Width 17.6 % (13.2-15.2); White Blood Count 5.8 K/mm3 (4.5-11.0)
[2017-01-19 12:15] LABS: BUN/Creatinine Ratio 3.25; Calcium 7.8 mg/dL (8.4-10.2); Chloride 98.5 mmol/L (98-107); Potassium 3.2 mmol/L (3.6-5.0)
[2017-01-19] MEDS: TYLENOL PO PRN ×2 (13:55→22:30)
[2017-01-19] MEDS: NACL 0.9% 1000 ML 1,000 ML IV SCH (13:58)
[2017-01-19] MEDS: ZOCOR PO SCH (22:24)
[2017-01-19] MEDS: ARICEPT PO SCH (22:24)
[2017-01-20 04:53] LABS: Basophils % (Auto) 0.4 % (0.0-1.8); Hematocrit 22.8 % (35.5-45.6); Hemoglobin 7.4 gm/dl (11.8-15.2); Mean Corpuscular HGB Conc 32 % (32-34); Mean Corpuscular Hemoglobin 29 pg (28-32); Mean Corpuscular Volume 88 fl (84-94); Platelet Count 231 K/mm3 (140-440); Red Blood Count 2.58 M/mm3 (3.65-5.03); Red Cell Distribution Width 17.3 % (13.2-15.2); White Blood Count 6.3 K/mm3 (4.5-11.0)
[2017-01-20 05:02] LABS: BUN/Creatinine Ratio 3.26; Calcium 8.6 mg/dL (8.4-10.2); Potassium 3.9 mmol/L (3.6-5.0)
[2017-01-20] MEDS: ZOSYN/NS 2.25 GM/50ML 2.25 GM/50 ML BAG IV SCH ×3 (06:50→23:00)
[2017-01-20] MEDS: NACL 0.9% 1000 ML 1,000 ML IV SCH (06:50)
--- NOTE | 2017-01-20 07:19 | Progress Note ---
Assessment and Plan Impression: * End stage renal disease on hemodialysis MWF * Peripheral artery disease --s/p RLE revascularization w/ atherectomy, angioplasty and drug coated balloons. * Gangrene, questionable osteomyelitis * Hypertension * Anemia secondary to ESRD Plan: * Hemodialysis MWF * UF as tolerated * Abx per ID * Vascular surgery following * Continue antiHTN medications * Epogen for goal Hb 10-12 * Renal diet Subjective Date of service: 01/20/17 Principal diagnosis: PVD; Right Foot Ischemia Interval history: resting well in bed today Objective - Exam Narrative Exam: General appearance: well-developed, well-nourished EENT: ATNC Respiratory: Present: Clear to Ascultation Cardiology: regular, S1S2 Gastrointestinal: normal, no tenderness, no distended Neurologic: alert and oriented x3 Musculoskeletal: other (+trace edema) Psychiatric: cooperative - Vital Signs Vital signs: Vital Signs - 12hr 01/19/17 01/19/17 01/19/17 22:00 22:23 22:24 Temperature 98.2 F Pulse Rate 74 72 72 Pulse Rate [ 74 Apical] Respiratory 20 Rate Respiratory 20 Rate [Bilateral Foot] Blood Pressure 154/50 154/50 154/50 01/19/17 01/19/17 22:30 23:30 Temperature Pulse Rate Pulse Rate [ Apical] Respiratory 22 20 Rate Respiratory Rate [Bilateral Foot] Blood Pressure - Lab 01/20/17 04:28 01/20/17 04:28 Most recent lab results Calcium 8.6 mg/dL (8.4-10.2) 01/20/17 04:28
--- NOTE | 2017-01-20 07:50 | Vascular Lab Report ---
MISCELLANEOUS VESSEL IDENTIFICATION: COMMENTS ON THE SCAN: The left common femoral artery was identified and under real-time ultrasound guidance was cannulated. IMPRESSION: Successful ultrasound guided arterial cannulation.
[2017-01-20] MEDS: NOVOLOG SUB-Q SCH ×4 (08:22→22:00)
[2017-01-20] MEDS: RENVELA PO SCH ×3 (08:22→17:24)
[2017-01-20] MEDS: PROTONIX PO SCH (09:48)
[2017-01-20] MEDS: MONOKET PO SCH (09:49)
[2017-01-20] MEDS: HEPARIN SUB-Q SCH ×2 (09:49→22:49)
[2017-01-20] MEDS: CALAN SR PO SCH ×2 (10:00→22:47)
[2017-01-20] MEDS: COREG PO SCH ×2 (10:00→22:48)
--- NOTE | 2017-01-20 11:01 | Progress Note ---
Assessment and Plan Assessment and plan: Peripheral vascular disease. s/p RLE revascularization w/ atherectomy, angioplasty and drug coated balloons. Gangrene. ? Osteomyelitis. Continue IV antibiotics. ID following. ESRD. Nephrology following. Continue hemodialysis. Anemia of CKD. Continue to monitor H&H and transfuse for hemoglobin less than 7. Continue Epogen. Hypertension. Continue Coreg and verapamil. Hyperlipidemia. Continue statins. Hypokalemia. Replete potassium. GERD. Continue PPIs. DVT prophylaxis. Continue heparin. History Interval history: No new issues overnight. Hospitalist Physical - Constitutional Vitals: Temp Pulse Resp BP Pulse Ox 99.0 F 65 20 138/56 97 01/20/17 10:00 01/20/17 10:00 01/20/17 10:00 01/20/17 10:00 01/19/17 10:00 General appearance: Present: no acute distress - EENT Eyes: Present: PERRL, EOM intact ENT: hearing intact, clear oral mucosa, dentition normal - Neck Neck: Present: supple, normal ROM - Respiratory Respiratory effort: normal Respiratory: bilateral: CTA - Cardiovascular Rhythm: regular Heart Sounds: Present: S1 & S2. Absent: gallop, rub - Extremities Extremities: no ischemia, No edema, Full ROM - Abdominal General gastrointestinal: soft, non-tender, non-distended, normal bowel sounds - Integumentary Integumentary: Present: clear, warm, dry - Neurologic Neurologic: CNII-XII intact, moves all extremities Results - Labs CBC & Chem 7: 01/20/17 04:28 01/20/17 04:28 Labs: Laboratory Last Values WBC 6.3 K/mm3 (4.5-11.0) 01/20/17 04:28 RBC 2.58 M/mm3 (3.65-5.03) L 01/20/17 04:28 Hgb 7.4 gm/dl (11.8-15.2) L 01/20/17 04:28 Hct 22.8 % (35.5-45.6) L 01/20/17 04:28 MCV 88 fl (84-94) 01/20/17 04:28 MCH 29 pg (28-32) 01/20/17 04:28 MCHC 32 % (32-34) 01/20/17 04:28 RDW 17.3 % (13.2-15.2) H 01/20/17 04:28 Plt Count 231 K/mm3 (140-440) 01/20/17 04:28 Lymph % (Auto) 10.9 % (13.4-35.0) L 01/20/17 04:28 [place] % (Auto) 6.5 % (0.0-7.3) 01/20/17 04:28 Eos % (Auto) 3.0 % (0.0-4.3) 01/20/17 04:28 Baso % (Auto) 0.4 % (0.0-1.8) 01/20/17 04:28 Lymph # 0.7 K/mm3 (1.2-5.4) L 01/20/17 04:28 [place] # 0.4 K/mm3 (0.0-0.8) 01/20/17 04:28 Eos # 0.2 K/mm3 (0.0-0.4) 01/20/17 04:28 Baso # 0.0 K/mm3 (0.0-0.1) 01/20/17 04:28 Seg Neutrophils % 79.2 % (40.0-70.0) H 01/20/17 04:28 Seg Neutrophils # 5.0 K/mm3 (1.8-7.7) 01/20/17 04:28 PT 14.7 Sec. (12.2-14.9) 01/16/17 15:31 INR 1.16 (0.87-1.13) H 01/16/17 15:31 APTT 29.7 Sec. (24.2-36.6) 01/16/17 15:31 Sodium 140 mmol/L (137-145) 01/20/17 04:28 Potassium 3.9 mmol/L (3.6-5.0) D 01/20/17 04:28 Chloride 97.0 mmol/L (98-107) L 01/20/17 04:28 Carbon Dioxide 25 mmol/L (22-30) 01/20/17 04:28 Anion Gap 22 mmol/L 01/20/17 04:28 BUN 32 mg/dL (9-20) H 01/20/17 04:28 Creatinine 9.8 mg/dL (0.8-1.5) H 01/20/17 04:28 Estimated GFR 7 ml/min 01/20/17 04:28 BUN/Creatinine Ratio 3.26 % 01/20/17 04:28 Glucose 169 mg/dL (75-100) H 01/20/17 04:28 POC Glucose 161 (70-105) H 01/20/17 08:17 Calcium 8.6 mg/dL (8.4-10.2) 01/20/17 04:28 Total Bilirubin 0.40 mg/dL (0.1-1.2) 01/16/17 15:31 AST 15 units/L (5-40) 01/16/17 15:31 ALT 8 units/L (7-56) 01/16/17 15:31 Alkaline Phosphatase 110 units/L (35-129) 01/16/17 15:31 Total Protein 7.7 g/dL (6.3-8.2) 01/16/17 15:31 Albumin 3.4 g/dL (3.9-5) L 01/16/17 15:31 Albumin/Globulin Ratio 0.8 % 01/16/17 15:31
--- NOTE | 2017-01-20 11:49 | Progress Note ---
Assessment and Plan He will need wound care and physical therapy to assist with ambulation Subjective Date of service: 01/20/17 Principal diagnosis: PVD; Right Foot Ischemia Interval history: Doing well following revascularization. Will need local wound care on interdigital spaces of the right foot. Objective - Constitutional Vitals: Vital Signs - 12hr 01/20/17 10:00 Temperature 99.0 F Pulse Rate 65 Respiratory 20 Rate Blood Pressure 138/56 General appearance: Present: no acute distress - EENT Eyes: PERRL, EOM intact ENT: hearing intact - Neck Neck: supple, normal ROM - Respiratory Respiratory effort: normal - Breasts Breasts: deferred Extremities: abnormal - Gastrointestinal General gastrointestinal: Present: deferred Rectal Exam: deferred - Genitourinary Male genitourinary: deferred - Integumentary Integumentary: clear - Psychiatric Psychiatric: cooperative - Labs CBC & Chem 7: 01/20/17 04:28 01/20/17 04:28 Labs: Abnormal lab results 01/19/17 01/19/17 01/19/17 Range/Units 09:42 09:42 22:03 RBC 2.70 L (3.65-5.03) M/mm3 Hgb 7.6 L (11.8-15.2) gm/dl Hct 24.6 L (35.5-45.6) % MCHC 31 L (32-34) % RDW 17.6 H (13.2-15.2) % Lymph % (Auto) 13.1 L (13.4-35.0) % Saline % (Auto) 7.5 H (0.0-7.3) % Lymph # 0.8 L (1.2-5.4) K/mm3 Seg Neutrophils % 75.9 H (40.0-70.0) % Potassium 3.2 L (3.6-5.0) mmol/L Chloride (98-107) mmol/L BUN 27 H (9-20) mg/dL Creatinine 8.3 H (0.8-1.5) mg/dL Glucose (75-100) mg/dL POC Glucose 183 H (70-105) Calcium 7.8 L (8.4-10.2) mg/dL 01/20/17 01/20/17 01/20/17 Range/Units 04:28 04:28 08:17 RBC 2.58 L (3.65-5.03) M/mm3 Hgb 7.4 L (11.8-15.2) gm/dl Hct 22.8 L (35.5-45.6) % MCHC (32-34) % RDW 17.3 H (13.2-15.2) % Lymph % (Auto) 10.9 L (13.4-35.0) % Saline % (Auto) (0.0-7.3) % Lymph # 0.7 L (1.2-5.4) K/mm3 Seg Neutrophils % 79.2 H (40.0-70.0) % Potassium (3.6-5.0) mmol/L Chloride 97.0 L (98-107) mmol/L BUN 32 H (9-20) mg/dL Creatinine 9.8 H (0.8-1.5) mg/dL Glucose 169 H (75-100) mg/dL POC Glucose 161 H (70-105) Calcium (8.4-10.2) mg/dL
--- NOTE | 2017-01-20 12:28 | Progress Note ---
Assessment and Plan - Patient Problems (1) PAD (peripheral artery disease) Current Visit: Yes Status: Acute Plan to address problem: 1. Tentative plan is to continue Zosyn while inpatient and change to oral Clindamycin 150mg PO q8h at discharge to complete a course through ~ January 27, 2017. 2. Outpatient follow-up with vascular to follow evolution of ischemic toe changes. Subjective Date of service: 01/20/17 Principal diagnosis: PVD; Right Foot Ischemia Interval history: Patient is off the floor today. Objective - Constitutional Vitals: Vital Signs Temp Pulse Resp BP Pulse Ox 99.0 F 65 20 138/56 97 01/20/17 10:00 01/20/17 10:00 01/20/17 10:00 01/20/17 10:00 01/19/17 10:00 Temperature -Last 24 Hours Temperature 99.0 F Temperature 98.2 F - Labs CBC & Chem 7: 01/20/17 04:28 01/20/17 04:28 Labs: Abnormal lab results 01/19/17 01/20/17 01/20/17 Range/Units 22:03 04:28 04:28 RBC 2.58 L (3.65-5.03) M/mm3 Hgb 7.4 L (11.8-15.2) gm/dl Hct 22.8 L (35.5-45.6) % RDW 17.3 H (13.2-15.2) % Lymph % (Auto) 10.9 L (13.4-35.0) % Lymph # 0.7 L (1.2-5.4) K/mm3 Seg Neutrophils % 79.2 H (40.0-70.0) % Chloride 97.0 L (98-107) mmol/L BUN 32 H (9-20) mg/dL Creatinine 9.8 H (0.8-1.5) mg/dL Glucose 169 H (75-100) mg/dL POC Glucose 183 H (70-105) 01/20/17 Range/Units 08: RBC (3.65-5.03) M/mm3 Hgb (11.8-15.2) gm/dl Hct (35.5-45.6) % RDW (13.2-15.2) % Lymph % (Auto) (13.4-35.0) % Lymph # (1.2-5.4) K/mm3 Seg Neutrophils % (40.0-70.0) % Chloride (98-107) mmol/L BUN (9-20) mg/dL Creatinine (0.8-1.5) mg/dL Glucose (75-100) mg/dL POC Glucose 161 H (70-105) Microbiology 01/16/17 16:14 Peripheral/Venous Blood Culture - Preliminary NO GROWTH AFTER 72 HOURS 01/16/17 15:31 Peripheral/Venous Blood Culture - Preliminary NO GROWTH AFTER 72 HOURS
[2017-01-20] MEDS ORDERED: NACL 0.9 (PRIMING MACHINE ONLY DIALYSIS) MC ONE (13:31)
[2017-01-20] MEDS: TYLENOL PO PRN (15:17)
--- NOTE | 2017-01-20 16:23 | Consultation ---
History of Present Illness - HPI Consult date: 01/20/17 Consult reason: other History of present illness: 66-year-old male who comes in complaining of right foot pain and discoloration he was seen by vascular surgery where angioplasty performed asked to evaluate the patient's right foot due to gangrenous changes Past History Past Medical History: ESRD, GERD, hypertension, hyperlipidemia Past Surgical History: Other Social history: lives with family, smoking (1 ppd) Family history: hypertension Medications and Allergies Allergies Allergy/AdvReac Type Severity Reaction Status Date / Time No Known Allergies Allergy Unverified 01/16/17 10:30 Home Medications Medication Instructions Recorded Confirmed Last Taken Type Coreg 25 mg PO BID 01/16/17 01/16/17 01/16/17 09:00 History Donepezil [Aricept] 5 mg PO HS 01/16/17 01/16/17 01/15/17 21:00 History Ibuprofen [Motrin 800 MG tab] 800 mg PO Q6H PRN 01/16/17 01/16/17 Unknown History Isosorbide Dinitrate 20 mg PO DAILY 01/16/17 01/16/17 01/16/17 09:00 History Omeprazole 40 mg PO BIDAC 01/16/17 01/16/17 01/16/17 09:00 History Renvela 800 mg PO TID 01/16/17 01/16/17 01/16/17 09:00 History 800 mg Simvastatin [Zocor TAB] 20 mg PO QHS 01/16/17 01/16/17 01/15/17 21:00 History Verapamil 120 mg PO DAILY 01/16/17 01/16/17 01/16/17 09:00 History Active Meds: Active Medications Acetaminophen (Tylenol) 650 mg PO Q4H PRN PRN Reason: Pain MILD(1-3)/Fever >100.5/ELIZABETH Last Admin: 01/20/17 15:17 Dose: 650 mg Bisacodyl (Dulcolax) 10 mg MA QDAY PRN PRN Reason: Constipation unrelieved by MOM Carvedilol (Coreg) 25 mg PO BID [facility] Last Admin: 01/20/17 10:00 Dose: Not Given Donepezil HCl (Aricept) 5 mg PO HS [facility] Last Admin: 01/19/17 22:24 Dose: 5 mg Epoetin Derrick (Epogen) 20,000 unit IV FLORENTIN PRN PRN Reason: hemodialysis Last Admin: 01/20/17 14:15 Dose: 20,000 unit Heparin Sodium (Porcine) (Heparin) 5,000 unit SUB-Q Q12HR [facility] Last Admin: 01/20/17 09:49 Dose: 5,000 unit Sodium Chloride (Nacl 0.9% 1000 Ml) 1,000 mls @ 75 mls/hr IV DIRECT [facility] Last Admin: 01/20/17 06:50 Dose: 75 mls/hr Piperacillin Sod/Tazobactam Sod (Zosyn/Ns 2.25 Gm/50ml) 2.25 gm in 50 mls @ 100 mls/hr IV Q8HR [facility] Last Admin: 01/20/17 15:18 Dose: 100 mls/hr Sodium Chloride (Nacl 0.9%) 100 mls @ 999 mls/hr IV FLORENTIN PRN PRN Reason: Hypotension Insulin Aspart (Novolog) 0 units SUB-Q ACHS KEN PRN Reason: Protocol Last Admin: 01/20/17 11:30 Dose: Not Given Isosorbide Mononitrate (Monoket) 20 mg PO DAILY [facility] Last Admin: 01/20/17 09:49 Dose: 20 mg Magnesium Hydroxide (Milk Of Magnesia) 30 ml PO Q4H PRN PRN Reason: Constipation Ondansetron HCl (Zofran) 4 mg IV Q8H PRN PRN Reason: N/V unrelieved by Reglan Pantoprazole Sodium (Protonix) 40 mg PO DAILY [facility] Last Admin: 01/20/17 09:48 Dose: 40 mg Sevelamer Carbonate (Renvela) 800 mg PO AC [facility] Last Admin: 01/20/17 11:30 Dose: Not Given Simvastatin (Zocor) 20 mg PO QHS [facility] Last Admin: 01/19/17 22:24 Dose: 20 mg Verapamil HCl (Calan Sr) 120 mg PO Q12HR [facility] Last Admin: 01/20/17 10:00 Dose: Not Given Physical Examination - Physical exam Narrative exam: On physical examination well-nourished well-developed male in no obvious distress significant findings relates to the lower extremities at the right foot he was noted to have dark ischemic changes to all 5 digits there are minimal redness or erythema noted at the midfoot Assessment and Plan Assessment -dry gangrene right forefoot Recommendations -would recommend observation at this point he may ultimately require an amputation of some sort either digital or transmetatarsal
[2017-01-20] MEDS: ARICEPT PO SCH (22:48)
[2017-01-20] MEDS: ZOCOR PO SCH (22:49)
[2017-01-21 05:19] LABS: Basophils % (Auto) 0.4 % (0.0-1.8); Hematocrit 23.6 % (35.5-45.6); Hemoglobin 7.8 gm/dl (11.8-15.2); Mean Corpuscular HGB Conc 33 % (32-34); Mean Corpuscular Hemoglobin 29 pg (28-32); Mean Corpuscular Volume 89 fl (84-94); Platelet Count 253 K/mm3 (140-440); Red Blood Count 2.65 M/mm3 (3.65-5.03); Red Cell Distribution Width 17.4 % (13.2-15.2); White Blood Count 6.9 K/mm3 (4.5-11.0)
[2017-01-21 05:35] LABS: BUN/Creatinine Ratio 2.05; Chloride 96.9 mmol/L (98-107); Potassium 4.3 mmol/L (3.6-5.0)
[2017-01-21] MEDS: ZOSYN/NS 2.25 GM/50ML 2.25 GM/50 ML BAG IV SCH ×3 (06:24→21:56)
[2017-01-21] MEDS: NOVOLOG SUB-Q SCH ×3 (08:00→17:00)
--- NOTE | 2017-01-21 08:04 | Progress Note ---
Assessment and Plan Impression: * End stage renal disease on hemodialysis MWF * Peripheral artery disease --s/p RLE revascularization w/ atherectomy, angioplasty and drug coated balloons. * Gangrene, questionable osteomyelitis * Hypertension * Anemia secondary to ESRD Plan: * Hemodialysis MWF * UF as tolerated * Abx per ID * Vascular surgery following * Continue antiHTN medications * Epogen for goal Hb 10-12 * Renal diet Subjective Date of service: 01/21/17 Principal diagnosis: PVD; Right Foot Ischemia Interval history: resting well in bed today Objective - Exam Narrative Exam: General appearance: well-developed, well-nourished EENT: ATNC Respiratory: Present: Clear to Ascultation Cardiology: regular, S1S2 Gastrointestinal: normal, no tenderness, no distended Neurologic: alert and oriented x3 Musculoskeletal: other (+trace edema) Psychiatric: cooperative - Vital Signs Vital signs: Vital Signs - 12hr 01/20/17 01/20/17 01/20/17 22:00 22:47 22:48 Temperature 98.8 F Pulse Rate 75 75 75 Respiratory 20 Rate Blood Pressure 145/52 145/52 145/52 O2 Sat by Pulse 100 Oximetry - Lab 01/21/17 04:49 01/21/17 04:49 Most recent lab results Calcium 9.0 mg/dL (8.4-10.2) 01/21/17 04:49
[2017-01-21] MEDS: RENVELA PO SCH ×3 (08:15→17:57)
[2017-01-21] MEDS: MONOKET PO SCH (11:11)
[2017-01-21] MEDS: COREG PO SCH ×2 (11:11→21:53)
[2017-01-21] MEDS: HABITROL TD SCH (11:12)
[2017-01-21] MEDS: HEPARIN SUB-Q SCH ×2 (11:12→22:15)
[2017-01-21] MEDS: CALAN SR PO SCH ×2 (11:12→21:53)
[2017-01-21] MEDS: PROTONIX PO SCH (11:12)
--- NOTE | 2017-01-21 11:19 | Progress Note ---
Assessment and Plan Assessment and plan: Peripheral vascular disease. s/p RLE revascularization w/ atherectomy, angioplasty and drug coated balloons. Gangrene. ? Osteomyelitis. Continue IV antibiotics. ID following. ESRD. Nephrology following. Continue hemodialysis. Anemia of CKD. Continue to monitor H&H and transfuse for hemoglobin less than 7. Continue Epogen. Hypertension. Continue Coreg and verapamil. Hyperlipidemia. Continue statins. Hypokalemia. Replete potassium. GERD. Continue PPIs. Tobacco abuse. Start nicotine patch. DVT prophylaxis. Continue heparin. History Interval history: No new issues overnight. Hospitalist Physical - Constitutional Vitals: Temp Pulse Resp BP Pulse Ox 98.2 F 70 20 153/58 100 01/21/17 09:59 01/21/17 09:59 01/21/17 09:59 01/21/17 09:59 01/20/17 22:00 General appearance: Present: no acute distress - EENT Eyes: Present: PERRL, EOM intact ENT: hearing intact, clear oral mucosa, dentition normal - Neck Neck: Present: supple, normal ROM - Respiratory Respiratory effort: normal Respiratory: bilateral: CTA - Cardiovascular Rhythm: regular Heart Sounds: Present: S1 & S2. Absent: gallop, rub - Extremities Extremities: no ischemia, No edema, Full ROM - Abdominal General gastrointestinal: soft, non-tender, non-distended, normal bowel sounds - Integumentary Integumentary: Present: clear, warm, dry - Neurologic Neurologic: CNII-XII intact, moves all extremities Results - Labs CBC & Chem 7: 01/21/17 04:49 01/21/17 04:49 Labs: Laboratory Last Values WBC 6.9 K/mm3 (4.5-11.0) 01/21/17 04:49 RBC 2.65 M/mm3 (3.65-5.03) L 01/21/17 04:49 Hgb 7.8 gm/dl (11.8-15.2) L 01/21/17 04:49 Hct 23.6 % (35.5-45.6) L 01/21/17 04:49 MCV 89 fl (84-94) 01/21/17 04:49 MCH 29 pg (28-32) 01/21/17 04:49 MCHC 33 % (32-34) 01/21/17 04:49 RDW 17.4 % (13.2-15.2) H 01/21/17 04:49 Plt Count 253 K/mm3 (140-440) 01/21/17 04:49 Lymph % (Auto) 10.3 % (13.4-35.0) L 01/21/17 04:49 [place] % (Auto) 6.4 % (0.0-7.3) 01/21/17 04:49 Eos % (Auto) 2.0 % (0.0-4.3) 01/21/17 04:49 Baso % (Auto) 0.4 % (0.0-1.8) 01/21/17 04:49 Lymph # 0.7 K/mm3 (1.2-5.4) L 01/21/17 04:49 [place] # 0.4 K/mm3 (0.0-0.8) 01/21/17 04:49 Eos # 0.1 K/mm3 (0.0-0.4) 01/21/17 04:49 Baso # 0.0 K/mm3 (0.0-0.1) 01/21/17 04:49 Seg Neutrophils % 80.9 % (40.0-70.0) H 01/21/17 04:49 Seg Neutrophils # 5.6 K/mm3 (1.8-7.7) 01/21/17 04:49 PT 14.7 Sec. (12.2-14.9) 01/16/17 15:31 INR 1.16 (0.87-1.13) H 01/16/17 15:31 APTT 29.7 Sec. (24.2-36.6) 01/16/17 15:31 Sodium 142 mmol/L (137-145) 01/21/17 04:49 Potassium 4.3 mmol/L (3.6-5.0) 01/21/17 04:49 Chloride 96.9 mmol/L (98-107) L 01/21/17 04:49 Carbon Dioxide 24 mmol/L (22-30) 01/21/17 04:49 Anion Gap 25 mmol/L 01/21/17 04:49 BUN 14 mg/dL (9-20) 01/21/17 04:49 Creatinine 6.8 mg/dL (0.8-1.5) H 01/21/17 04:49 Estimated GFR 10 ml/min 01/21/17 04:49 BUN/Creatinine Ratio 2.05 % 01/21/17 04:49 Glucose 126 mg/dL (75-100) H 01/21/17 04:49 POC Glucose 142 (70-105) H 01/21/17 08:02 Calcium 9.0 mg/dL (8.4-10.2) 01/21/17 04:49 Total Bilirubin 0.40 mg/dL (0.1-1.2) 01/16/17 15:31 AST 15 units/L (5-40) 01/16/17 15:31 ALT 8 units/L (7-56) 01/16/17 15:31 Alkaline Phosphatase 110 units/L (35-129) 01/16/17 15:31 Total Protein 7.7 g/dL (6.3-8.2) 01/16/17 15:31 Albumin 3.4 g/dL (3.9-5) L 01/16/17 15:31 Albumin/Globulin Ratio 0.8 % 01/16/17 15:31
--- NOTE | 2017-01-21 12:02 | Progress Note ---
Assessment and Plan Both PT and DP signals are present on the right foot. He still has significant TTP along the dorsum and toes on the right. His flow to the foot has been optimized. Awaiting wound care and PT recommendations. Will start on Plavix for antiplatelet therapy. Subjective Date of service: 01/21/17 Principal diagnosis: PVD; Right Foot Ischemia Interval history: No acute distress. Currently sleeping. Is alert and oriented upon awakening. c/o right foot pain with palpation. Objective - Constitutional Vitals: Vital Signs - 12hr 01/21/17 01/21/17 01/21/17 09:59 11:11 11:12 Temperature 98.2 F Pulse Rate 70 70 70 Respiratory 20 Rate Blood Pressure 153/58 151/58 151/58 General appearance: Present: no acute distress - EENT ENT: hearing intact, clear oral mucosa Extremities: abnormal (Positive doppler signal from right DP and PT.) Extremity abnormal: tenderness (the right foot is tender overall. There are wounds in the toe interspaces which are especially sensitive.) - Labs CBC & Chem 7: 01/21/17 04:49 01/21/17 04:49 Labs: Abnormal lab results 01/20/17 01/20/17 01/21/17 Range/Units 16:57 22:51 04:49 RBC 2.65 L (3.65-5.03) M/mm3 Hgb 7.8 L (11.8-15.2) gm/dl Hct 23.6 L (35.5-45.6) % RDW 17.4 H (13.2-15.2) % Lymph % (Auto) 10.3 L (13.4-35.0) % Lymph # 0.7 L (1.2-5.4) K/mm3 Seg Neutrophils % 80.9 H (40.0-70.0) % Chloride (98-107) mmol/L Creatinine (0.8-1.5) mg/dL Glucose (75-100) mg/dL POC Glucose 177 H 119 H (70-105) 01/21/17 01/21/17 Range/Units 04:49 08:02 RBC (3.65-5.03) M/mm3 Hgb (11.8-15.2) gm/dl Hct (35.5-45.6) % RDW (13.2-15.2) % Lymph % (Auto) (13.4-35.0) % Lymph # (1.2-5.4) K/mm3 Seg Neutrophils % (40.0-70.0) % Chloride 96.9 L (98-107) mmol/L Creatinine 6.8 H (0.8-1.5) mg/dL Glucose 126 H (75-100) mg/dL POC Glucose 142 H (70-105)
[2017-01-21] MEDS: PLAVIX PO SCH (13:53)
--- NOTE | 2017-01-21 17:17 | Progress Note ---
Assessment and Plan - Patient Problems (1) PAD (peripheral artery disease) Current Visit: Yes Status: Acute Plan to address problem: 1. Plan as previously noted to continue empiric Zosyn while inpatient and oral Clindamycin when patient is ready for discharge to complete a course through 01/27/17 2. Partial amputation or other surgery per assessment of vascular surgeon. 3. I will sign off. Please call again if there are additional questions or concerns. Subjective Date of service: 01/21/17 Principal diagnosis: PVD; Right Foot Ischemia Interval history: No new complaints. Objective - Constitutional Vitals: Vital Signs Temp Pulse Resp BP Pulse Ox 98.2 F 70 18 151/58 96 01/21/17 09:59 01/21/17 11:12 01/21/17 10:00 01/21/17 11:12 01/21/17 10:00 Temperature -Last 24 Hours Temperature 98.2 F Temperature 98.8 F General appearance: Present: no acute distress, well-nourished - Respiratory Respiratory effort: normal Respiratory: bilateral: CTA - Cardiovascular Rhythm: regular Heart Sounds: Present: S1 & S2 Extremity abnormal: edema (trace edema of right foot with demarcating hyperpigmentation/ ischemia, tender to palpation at 3rd/4th toes, no increased warmth) - Gastrointestinal General gastrointestinal: Present: soft, non-distended - Integumentary Integumentary: clear, no rash - Psychiatric Psychiatric: cooperative - Labs CBC & Chem 7: 01/21/17 04:49 01/21/17 04:49 Labs: Abnormal lab results 01/20/17 01/21/17 01/21/17 Range/Units 22:51 04:49 04:49 RBC 2.65 L (3.65-5.03) M/mm3 Hgb 7.8 L (11.8-15.2) gm/dl Hct 23.6 L (35.5-45.6) % RDW 17.4 H (13.2-15.2) % Lymph % (Auto) 10.3 L (13.4-35.0) % Lymph # 0.7 L (1.2-5.4) K/mm3 Seg Neutrophils % 80.9 H (40.0-70.0) % Chloride 96.9 L (98-107) mmol/L Creatinine 6.8 H (0.8-1.5) mg/dL Glucose 126 H (75-100) mg/dL POC Glucose 119 H (70-105) 01/21/17 01/21/17 01/21/17 Range/Units 08:02 12:02 16:41 RBC (3.65-5.03) M/mm3 Hgb (11.8-15.2) gm/dl Hct (35.5-45.6) % RDW (13.2-15.2) % Lymph % (Auto) (13.4-35.0) % Lymph # (1.2-5.4) K/mm3 Seg Neutrophils % (40.0-70.0) % Chloride (98-107) mmol/L Creatinine (0.8-1.5) mg/dL Glucose (75-100) mg/dL POC Glucose 142 H 183 H 184 H (70-105) Microbiology 01/16/17 16:14 Peripheral/Venous Blood Culture - Preliminary NO GROWTH AFTER 4 DAYS 01/16/17 15:31 Peripheral/Venous Blood Culture - Preliminary NO GROWTH AFTER 4 DAYS
[2017-01-21] MEDS: TYLENOL PO PRN (17:58)
[2017-01-21] MEDS: ARICEPT PO SCH (21:53)
[2017-01-21] MEDS: ZOCOR PO SCH (21:53)
[2017-01-22] MEDS: NOVOLOG SUB-Q SCH ×5 (03:20→23:25)
[2017-01-22] MEDS: TYLENOL PO PRN ×5 (05:22→21:40)
[2017-01-22] MEDS: ZOSYN/NS 2.25 GM/50ML 2.25 GM/50 ML BAG IV SCH ×3 (05:25→23:20)
[2017-01-22 05:59] LABS: Basophils % (Auto) 0.3 % (0.0-1.8); Eosinophils % (Auto) 3.3 % (0.0-4.3); Hematocrit 22.9 % (35.5-45.6); Hemoglobin 7.3 gm/dl (11.8-15.2); Mean Corpuscular HGB Conc 32 % (32-34); Mean Corpuscular Hemoglobin 29 pg (28-32); Mean Corpuscular Volume 90 fl (84-94); Platelet Count 231 K/mm3 (140-440); Red Blood Count 2.54 M/mm3 (3.65-5.03); Red Cell Distribution Width 17.6 % (13.2-15.2); White Blood Count 5.9 K/mm3 (4.5-11.0)
[2017-01-22 06:15] LABS: BUN/Creatinine Ratio 2.35; Calcium 8.8 mg/dL (8.4-10.2); Chloride 98.2 mmol/L (98-107); Potassium 3.9 mmol/L (3.6-5.0)
--- NOTE | 2017-01-22 07:38 | Progress Note ---
Assessment and Plan Impression: * End stage renal disease on hemodialysis MWF * Peripheral artery disease --s/p RLE revascularization w/ atherectomy, angioplasty and drug coated balloons. * Gangrene, questionable osteomyelitis * Hypertension * Anemia secondary to ESRD Plan: * Hemodialysis MWF * UF as tolerated * Abx per ID * Vascular surgery following * Continue antiHTN medications * Epogen for goal Hb 10-12 * Renal diet Subjective Date of service: 01/22/17 Principal diagnosis: PVD; Right Foot Ischemia Interval history: resting well in bed today Objective - Exam Narrative Exam: General appearance: well-developed, well-nourished EENT: ATNC Respiratory: Present: Clear to Ascultation Cardiology: regular, S1S2 Gastrointestinal: normal, no tenderness, no distended Neurologic: alert and oriented x3 Musculoskeletal: other (+trace edema) Psychiatric: cooperative - Vital Signs Vital signs: Vital Signs - 12hr 01/21/17 01/21/17 21:53 23:00 Temperature 98.9 F Pulse Rate 69 68 Respiratory 14 Rate Blood Pressure 164/50 164/56 O2 Sat by Pulse 95 Oximetry - Lab 01/22/17 04:47 01/22/17 04:47 Most recent lab results Calcium 8.8 mg/dL (8.4-10.2) 01/22/17 04:47
[2017-01-22] MEDS: HABITROL TD SCH (09:18)
[2017-01-22] MEDS: PROTONIX PO SCH (09:19)
[2017-01-22] MEDS: RENVELA PO SCH ×3 (09:19→16:51)
[2017-01-22] MEDS: HEPARIN SUB-Q SCH ×2 (09:19→21:43)
[2017-01-22] MEDS: MONOKET PO SCH (09:31)
[2017-01-22] MEDS: CALAN SR PO SCH ×2 (09:31→21:38)
[2017-01-22] MEDS: COREG PO SCH ×2 (09:31→21:39)
[2017-01-22] MEDS: PLAVIX PO SCH (09:33)
--- NOTE | 2017-01-22 10:49 | Progress Note ---
Subjective Date of service: 01/22/17 Principal diagnosis: PVD; Right Foot Ischemia Interval history: The patient was seen today in dialysis. He had physical therapy evaluation yesterday but was unable to walk much due to right foot pain, especially on weight bearing and/or touch the cold floor. Otherwise, he's had no acute events since yesterday. Objective - Constitutional Vitals: Vital Signs - 12hr 01/21/17 23:00 Temperature 98.9 F Pulse Rate 68 Respiratory 14 Rate Blood Pressure 164/56 O2 Sat by Pulse 95 Oximetry General appearance: Present: no acute distress, well-nourished - EENT ENT: hearing intact, clear oral mucosa Extremity abnormal: other (crusting in the rt toe interspaces, with significant pain on palpation. Foot warm overall. Positive DP and PT doppler signals yesterday.) - Labs CBC & Chem 7: 01/22/17 04:47 01/22/17 04:47 Labs: Abnormal lab results 01/21/17 01/21/17 01/21/17 Range/Units 12:02 16:41 22:57 RBC (3.65-5.03) M/mm3 Hgb (11.8-15.2) gm/dl Hct (35.5-45.6) % RDW (13.2-15.2) % Lymph % (Auto) (13.4-35.0) % [place] % (Auto) (0.0-7.3) % Lymph # (1.2-5.4) K/mm3 Seg Neutrophils % (40.0-70.0) % BUN (9-20) mg/dL Creatinine (0.8-1.5) mg/dL Glucose (75-100) mg/dL POC Glucose 183 H 184 H 179 H (70-105) 01/22/17 01/22/17 01/22/17 Range/Units 04:47 04:47 07:37 RBC 2.54 L (3.65-5.03) M/mm3 Hgb 7.3 L (11.8-15.2) gm/dl Hct 22.9 L (35.5-45.6) % RDW 17.6 H (13.2-15.2) % Lymph % (Auto) 12.7 L (13.4-35.0) % [place] % (Auto) 8.1 H (0.0-7.3) % Lymph # 0.7 L (1.2-5.4) K/mm3 Seg Neutrophils % 75.6 H (40.0-70.0) % BUN 21 H (9-20) mg/dL Creatinine 8.9 H (0.8-1.5) mg/dL Glucose 127 H (75-100) mg/dL POC Glucose 126 H (70-105)
[2017-01-22] MEDS ORDERED: NACL 0.9 (PRIMING MACHINE ONLY DIALYSIS) MC ONE (11:54)
--- NOTE | 2017-01-22 13:13 | Progress Note ---
Assessment and Plan Assessment and plan: Peripheral vascular disease. s/p RLE revascularization w/ atherectomy, angioplasty and drug coated balloons. Gangrene. ? Osteomyelitis. Continue IV antibiotics. ID following. ESRD. Nephrology following. Continue hemodialysis. Anemia of CKD. Continue to monitor H&H and transfuse for hemoglobin less than 7. Continue Epogen. Hypertension. Continue Coreg and verapamil. Hyperlipidemia. Continue statins. Hypokalemia. Replete potassium. GERD. Continue PPIs. Tobacco abuse. Start nicotine patch. DVT prophylaxis. Continue heparin. Disposition. Patient will likely need rehabilitation placement. Case management consultation. History Interval history: No new issues overnight. Hospitalist Physical - Constitutional Vitals: Temp Pulse Resp BP Pulse Ox 97.8 F 65 18 189/85 98 01/22/17 09:37 01/22/17 12:15 01/22/17 09:37 01/22/17 12:15 01/22/17 09:30 General appearance: Present: no acute distress, well-nourished - EENT Eyes: Present: PERRL, EOM intact ENT: hearing intact, clear oral mucosa, dentition normal - Neck Neck: Present: supple, normal ROM - Respiratory Respiratory effort: normal Respiratory: bilateral: CTA - Cardiovascular Rhythm: regular Heart Sounds: Present: S1 & S2. Absent: gallop, rub - Extremities Extremities: no ischemia, No edema, Full ROM - Abdominal General gastrointestinal: soft, non-tender, non-distended, normal bowel sounds - Integumentary Integumentary: Present: clear, warm, dry - Neurologic Neurologic: CNII-XII intact, moves all extremities Results - Labs CBC & Chem 7: 01/22/17 04:47 01/22/17 04:47 Labs: Laboratory Last Values WBC 5.9 K/mm3 (4.5-11.0) 01/22/17 04:47 RBC 2.54 M/mm3 (3.65-5.03) L 01/22/17 04:47 Hgb 7.3 gm/dl (11.8-15.2) L 01/22/17 04:47 Hct 22.9 % (35.5-45.6) L 01/22/17 04:47 MCV 90 fl (84-94) 01/22/17 04:47 MCH 29 pg (28-32) 01/22/17 04:47 MCHC 32 % (32-34) 01/22/17 04:47 RDW 17.6 % (13.2-15.2) H 01/22/17 04:47 Plt Count 231 K/mm3 (140-440) 01/22/17 04:47 Lymph % (Auto) 12.7 % (13.4-35.0) L 01/22/17 04:47 [place] % (Auto) 8.1 % (0.0-7.3) H 01/22/17 04:47 Eos % (Auto) 3.3 % (0.0-4.3) 01/22/17 04:47 Baso % (Auto) 0.3 % (0.0-1.8) 01/22/17 04:47 Lymph # 0.7 K/mm3 (1.2-5.4) L 01/22/17 04:47 [place] # 0.5 K/mm3 (0.0-0.8) 01/22/17 04:47 Eos # 0.2 K/mm3 (0.0-0.4) 01/22/17 04:47 Baso # 0.0 K/mm3 (0.0-0.1) 01/22/17 04:47 Seg Neutrophils % 75.6 % (40.0-70.0) H 01/22/17 04:47 Seg Neutrophils # 4.5 K/mm3 (1.8-7.7) 01/22/17 04:47 PT 14.7 Sec. (12.2-14.9) 01/16/17 15:31 INR 1.16 (0.87-1.13) H 01/16/17 15:31 APTT 29.7 Sec. (24.2-36.6) 01/16/17 15:31 Sodium 142 mmol/L (137-145) 01/22/17 04:47 Potassium 3.9 mmol/L (3.6-5.0) 01/22/17 04:47 Chloride 98.2 mmol/L (98-107) 01/22/17 04:47 Carbon Dioxide 24 mmol/L (22-30) 01/22/17 04:47 Anion Gap 24 mmol/L 01/22/17 04:47 BUN 21 mg/dL (9-20) H 01/22/17 04:47 Creatinine 8.9 mg/dL (0.8-1.5) H 01/22/17 04:47 Estimated GFR 7 ml/min 01/22/17 04:47 BUN/Creatinine Ratio 2.35 % 01/22/17 04:47 Glucose 127 mg/dL (75-100) H 01/22/17 04:47 POC Glucose 126 (70-105) H 01/22/17 07:37 Calcium 8.8 mg/dL (8.4-10.2) 01/22/17 04:47 Total Bilirubin 0.40 mg/dL (0.1-1.2) 01/16/17 15:31 AST 15 units/L (5-40) 01/16/17 15:31 ALT 8 units/L (7-56) 01/16/17 15:31 Alkaline Phosphatase 110 units/L (35-129) 01/16/17 15:31 Total Protein 7.7 g/dL (6.3-8.2) 01/16/17 15:31 Albumin 3.4 g/dL (3.9-5) L 01/16/17 15:31 Albumin/Globulin Ratio 0.8 % 01/16/17 15:31
[2017-01-22] MEDS: NORCO 5/325 PO PRN (19:06)
[2017-01-22] MEDS: ZOCOR PO SCH (21:38)
[2017-01-22] MEDS: ARICEPT PO SCH (21:40)
[2017-01-23 06:14] LABS: Calcium 8.9 mg/dL (8.4-10.2); Potassium 3.9 mmol/L (3.6-5.0)
[2017-01-23 06:29] LABS: Basophils % (Auto) 0.3 % (0.0-1.8); Eosinophils % (Auto) 2.6 % (0.0-4.3); Hematocrit 24.4 % (35.5-45.6); Mean Corpuscular HGB Conc 33 % (32-34); Mean Corpuscular Hemoglobin 29 pg (28-32); Mean Corpuscular Volume 89 fl (84-94); Platelet Count 260 K/mm3 (140-440); Red Blood Count 2.76 M/mm3 (3.65-5.03); Red Cell Distribution Width 17.7 % (13.2-15.2); White Blood Count 6.5 K/mm3 (4.5-11.0)
[2017-01-23] MEDS: ZOSYN/NS 2.25 GM/50ML 2.25 GM/50 ML BAG IV SCH ×3 (06:43→22:56)
[2017-01-23] MEDS: RENVELA PO SCH ×3 (07:30→16:59)
[2017-01-23] MEDS: NOVOLOG SUB-Q SCH ×3 (08:00→17:27)
--- NOTE | 2017-01-23 09:23 | Progress Note ---
Assessment and Plan Impression: * End stage renal disease on hemodialysis MWF * Peripheral artery disease --s/p RLE revascularization w/ atherectomy, angioplasty and drug coated balloons. * Gangrene, questionable osteomyelitis * Hypertension * Anemia secondary to ESRD Plan: * Hemodialysis MWF * UF as tolerated * Abx per ID * Vascular surgery following * Continue antiHTN medications * Epogen for goal Hb 10-12 * Renal diet Subjective Date of service: 01/23/17 Principal diagnosis: PVD; Right Foot Ischemia Interval history: resting well in bed today Objective - Exam Narrative Exam: General appearance: well-developed, well-nourished EENT: ATNC Respiratory: Present: Clear to Ascultation Cardiology: regular, S1S2 Gastrointestinal: normal, no tenderness, no distended Neurologic: alert and oriented x3 Musculoskeletal: other (+trace edema) Psychiatric: cooperative - Vital Signs Vital signs: Vital Signs - 12hr 01/22/17 01/22/17 01/22/17 21:38 21:39 22:00 Temperature 98.1 F Pulse Rate 74 74 74 Pulse Rate [ 78 Apical] Respiratory 20 Rate Respiratory 16 Rate [Bilateral Foot] Blood Pressure 162/79 169/74 162/57 O2 Sat by Pulse 100 Oximetry - Lab 01/23/17 05:21 01/23/17 05:21 Most recent lab results Calcium 8.9 mg/dL (8.4-10.2) 01/23/17 05:21
--- NOTE | 2017-01-23 09:56 | Progress Note ---
Assessment and Plan Assessment and plan: Peripheral vascular disease. s/p RLE revascularization w/ atherectomy, angioplasty and drug coated balloons. Gangrene. ? Osteomyelitis. Continue IV antibiotics. ID following. ESRD. Nephrology following. Continue hemodialysis. Anemia of CKD. Continue to monitor H&H and transfuse for hemoglobin less than 7. Continue Epogen. Hypertension. Continue Coreg and verapamil. Hyperlipidemia. Continue statins. Hypokalemia. Replete potassium. GERD. Continue PPIs. Tobacco abuse. Start nicotine patch. DVT prophylaxis. Continue heparin. Disposition. Patient will likely need rehabilitation placement. Case management consultation. History Interval history: No new issues overnight. Hospitalist Physical - Constitutional Vitals: Temp Pulse Resp BP Pulse Ox 98.1 F 78 16 162/57 100 01/22/17 22:00 01/22/17 22:00 01/22/17 22:00 01/22/17 22:00 01/22/17 22:00 General appearance: Present: no acute distress, well-nourished - EENT Eyes: Present: PERRL, EOM intact ENT: hearing intact, clear oral mucosa, dentition normal - Neck Neck: Present: supple, normal ROM - Respiratory Respiratory effort: normal Respiratory: bilateral: CTA - Cardiovascular Rhythm: regular Heart Sounds: Present: S1 & S2. Absent: gallop, rub - Extremities Extremities: no ischemia, No edema, Full ROM - Abdominal General gastrointestinal: soft, non-tender, non-distended, normal bowel sounds - Integumentary Integumentary: Present: clear, warm, dry - Neurologic Neurologic: CNII-XII intact, moves all extremities Results - Labs CBC & Chem 7: 01/23/17 05:21 01/23/17 05:21 Labs: Laboratory Last Values WBC 6.5 K/mm3 (4.5-11.0) 01/23/17 05:21 RBC 2.76 M/mm3 (3.65-5.03) L 01/23/17 05:21 Hgb 8.0 gm/dl (11.8-15.2) L 01/23/17 05:21 Hct 24.4 % (35.5-45.6) L 01/23/17 05:21 MCV 89 fl (84-94) 01/23/17 05:21 MCH 29 pg (28-32) 01/23/17 05:21 MCHC 33 % (32-34) 01/23/17 05:21 RDW 17.7 % (13.2-15.2) H 01/23/17 05:21 Plt Count 260 K/mm3 (140-440) 01/23/17 05:21 Lymph % (Auto) 10.4 % (13.4-35.0) L 01/23/17 05:21 [place] % (Auto) 6.5 % (0.0-7.3) 01/23/17 05:21 Eos % (Auto) 2.6 % (0.0-4.3) 01/23/17 05:21 Baso % (Auto) 0.3 % (0.0-1.8) 01/23/17 05:21 Lymph # 0.7 K/mm3 (1.2-5.4) L 01/23/17 05:21 [place] # 0.4 K/mm3 (0.0-0.8) 01/23/17 05:21 Eos # 0.2 K/mm3 (0.0-0.4) 01/23/17 05:21 Baso # 0.0 K/mm3 (0.0-0.1) 01/23/17 05:21 Seg Neutrophils % 80.2 % (40.0-70.0) H 01/23/17 05:21 Seg Neutrophils # 5.2 K/mm3 (1.8-7.7) 01/23/17 05:21 PT 14.7 Sec. (12.2-14.9) 01/16/17 15:31 INR 1.16 (0.87-1.13) H 01/16/17 15:31 APTT 29.7 Sec. (24.2-36.6) 01/16/17 15:31 Sodium 141 mmol/L (137-145) 01/23/17 05:21 Potassium 3.9 mmol/L (3.6-5.0) 01/23/17 05:21 Chloride 98.0 mmol/L (98-107) 01/23/17 05:21 Carbon Dioxide 28 mmol/L (22-30) 01/23/17 05:21 Anion Gap 19 mmol/L 01/23/17 05:21 BUN 12 mg/dL (9-20) 01/23/17 05:21 Creatinine 6.0 mg/dL (0.8-1.5) H 01/23/17 05:21 Estimated GFR 11 ml/min 01/23/17 05:21 BUN/Creatinine Ratio 2.00 % 01/23/17 05:21 Glucose 97 mg/dL (75-100) 01/23/17 05:21 POC Glucose 114 (70-105) H 01/23/17 07:35 Calcium 8.9 mg/dL (8.4-10.2) 01/23/17 05:21 Total Bilirubin 0.40 mg/dL (0.1-1.2) 01/16/17 15:31 AST 15 units/L (5-40) 01/16/17 15:31 ALT 8 units/L (7-56) 01/16/17 15:31 Alkaline Phosphatase 110 units/L (35-129) 01/16/17 15:31 Total Protein 7.7 g/dL (6.3-8.2) 01/16/17 15:31 Albumin 3.4 g/dL (3.9-5) L 01/16/17 15:31 Albumin/Globulin Ratio 0.8 % 01/16/17 15:31
[2017-01-23] MEDS: HABITROL TD SCH (10:39)
[2017-01-23] MEDS: PLAVIX PO SCH (10:40)
[2017-01-23] MEDS: CALAN SR PO SCH ×2 (10:40→22:33)
[2017-01-23] MEDS: PROTONIX PO SCH (10:40)
[2017-01-23] MEDS: MONOKET PO SCH (10:41)
[2017-01-23] MEDS: COREG PO SCH ×2 (10:41→22:33)
[2017-01-23] MEDS: HEPARIN SUB-Q SCH ×2 (10:41→22:37)
--- NOTE | 2017-01-23 13:51 | Progress Note ---
Assessment and Plan Pt s/p percutaneous revascularization of the RLE in attempts to help heal the wounds to the right foot. Recommend good LWC. Pt working with physical therapy at the time of my exam. D/c planning for sub-acute rehab in progress. D/c to NH when all arrangements completed. - Patient Problems (1) Atherosclerosis of [place] arteries of the extremities with ulceration Current Visit: Yes Status: Acute Subjective Date of service: 01/23/17 Principal diagnosis: PVD; Right Foot Ischemia Interval history: Pt eval'd earlier this am. He c/o mild to mod discomfort to R foot with manipulation. Objective - Constitutional Vitals: Vital Signs - 12hr 01/23/17 01/23/17 01/23/17 10:00 10:40 10:41 Temperature 98.3 F Pulse Rate 64 64 64 Respiratory 18 Rate Blood Pressure 144/53 144/53 144/53 O2 Sat by Pulse 97 Oximetry General appearance: Present: no acute distress - EENT Eyes: EOM intact ENT: hearing intact - Neck Neck: supple - Respiratory Respiratory effort: normal Extremities: normal temperature Extremity abnormal: ulceration (between 2nd and 3rd , and 3rd and 4th digits on the right foot.) - Neurologic Neurologic: no focal deficits - Psychiatric Psychiatric: appropriate mood/affect, no intact judgment & insight, cooperative - Labs CBC & Chem 7: 01/23/17 05:21 01/23/17 05:21 Labs: Abnormal lab results 01/22/17 01/22/17 01/23/17 Range/Units 16:35 21:50 05:21 RBC 2.76 L (3.65-5.03) M/mm3 Hgb 8.0 L (11.8-15.2) gm/dl Hct 24.4 L (35.5-45.6) % RDW 17.7 H (13.2-15.2) % Lymph % (Auto) 10.4 L (13.4-35.0) % Lymph # 0.7 L (1.2-5.4) K/mm3 Seg Neutrophils % 80.2 H (40.0-70.0) % Creatinine (0.8-1.5) mg/dL POC Glucose 153 H 190 H (70-105) 01/23/17 01/23/17 Range/Units 05:21 07:35 RBC (3.65-5.03) M/mm3 Hgb (11.8-15.2) gm/dl Hct (35.5-45.6) % RDW (13.2-15.2) % Lymph % (Auto) (13.4-35.0) % Lymph # (1.2-5.4) K/mm3 Seg Neutrophils % (40.0-70.0) % Creatinine 6.0 H (0.8-1.5) mg/dL POC Glucose 114 H (70-105)
[2017-01-23] MEDS: NORCO 5/325 PO PRN (22:32)
[2017-01-23] MEDS: ARICEPT PO SCH (22:33)
[2017-01-23] MEDS: ZOCOR PO SCH (22:33)
[2017-01-23] MEDS: NACL 0.9% 1000 ML 1,000 ML IV SCH (22:57)
[2017-01-24] MEDS: NOVOLOG SUB-Q SCH ×5 (00:30→22:22)
[2017-01-24 05:06] LABS: Basophils % (Auto) 0.4 % (0.0-1.8); Hemoglobin 7.8 gm/dl (11.8-15.2); Mean Corpuscular HGB Conc 33 % (32-34); Mean Corpuscular Hemoglobin 29 pg (28-32); Mean Corpuscular Volume 88 fl (84-94); Platelet Count 256 K/mm3 (140-440); Red Blood Count 2.71 M/mm3 (3.65-5.03); Red Cell Distribution Width 17.5 % (13.2-15.2); White Blood Count 5.5 K/mm3 (4.5-11.0)
[2017-01-24 05:17] LABS: BUN/Creatinine Ratio 2.92; Calcium 8.8 mg/dL (8.4-10.2); Chloride 100.3 mmol/L (98-107); Potassium 3.9 mmol/L (3.6-5.0)
[2017-01-24] MEDS: ZOSYN/NS 2.25 GM/50ML 2.25 GM/50 ML BAG IV SCH ×3 (06:34→22:20)
[2017-01-24] MEDS: RENVELA PO SCH ×3 (08:31→17:00)
[2017-01-24] MEDS: CALAN SR PO SCH ×2 (10:07→21:47)
[2017-01-24] MEDS: PROTONIX PO SCH (10:08)
[2017-01-24] MEDS: NORCO 5/325 PO PRN ×2 (10:08→18:30)
[2017-01-24] MEDS: COREG PO SCH ×2 (10:08→21:47)
[2017-01-24] MEDS: HABITROL TD SCH (10:09)
[2017-01-24] MEDS: HEPARIN SUB-Q SCH ×2 (10:09→21:48)
[2017-01-24] MEDS: PLAVIX PO SCH (10:09)
[2017-01-24] MEDS: MONOKET PO SCH (10:12)
--- NOTE | 2017-01-24 10:56 | Progress Note ---
Subjective Principal diagnosis: PVD; Right Foot Ischemia Interval history: Time of evaluation 12 45 pm Patient was evaluated today for follow-up on multiple renal related issues Events of this hospitalization were noted,tolerating dialysis treatment well without any cramping or pain Patient does not appear to be any acute distress Vital labs intake and output medications were reviewed Current medications: Reviewed Social history:Reviewed Family history: Reviewed HEENT: No uremic order oral mucosa moist Neck: Supple without any thyromegaly not mass or JVD Chest: Clear to auscultation occasional basilar crackles posteriorly Heart: Regular rate and rhythm S1 and S2 heard no S3-S4 Abdomen: Soft nontender no voluntary guarding rigidity or rebound Extremity: Dry skin minimal edema Psychiatry: No agitation and aggression noted Assessment and plan End-stage renal disease patient is currently on maintenance hemodialysis on Friday balance today and Friday Osteomyelitis gangrene and peripheral arterial disease Anemia and end-stage renal disease currently on erythropoietin 20,000 units with dialysis current hemoglobin is 7.8 was 7.4 on January 20, Bone mineral disorder patient is currently on Renvela accelerated hypertension consider adding hydralazine and follow anemia and end- stage renal disease to monitor and follow Secondary hyperparathyroidism monitor phosphorus as well as PTH level In general malnutrition risk is high and dialysis patient please consider high- protein diet We'll continue to follow and make recommendation from renal standpoint Objective - Vital Signs Vital signs: Vital Signs - 12hr 01/24/17 01/24/17 01/24/17 00:00 04:00 07:00 Temperature 98.7 F 99.3 F 98.7 F Pulse Rate 69 65 63 Respiratory 20 18 20 Rate Blood Pressure 192/75 147/67 178/81 O2 Sat by Pulse 95 99 96 Oximetry 01/24/17 10:07 Temperature Pulse Rate 64 Respiratory Rate Blood Pressure 178/88 O2 Sat by Pulse Oximetry - Lab 01/24/17 04:48 01/24/17 04:48 Most recent lab results Calcium 8.8 mg/dL (8.4-10.2) 01/24/17 04:48
--- NOTE | 2017-01-24 12:34 | Progress Note ---
Assessment and Plan OK to D/C to rehab from a vascular standpoint Subjective Date of service: 01/24/17 Principal diagnosis: PVD; Right Foot Ischemia Interval history: Doing well. Pain continues to decrease. Objective - Constitutional Vitals: Vital Signs - 12hr 01/24/17 01/24/17 01/24/17 04:00 07:00 10:07 Temperature 99.3 F 98.7 F Pulse Rate 65 63 64 Respiratory 18 20 Rate Blood Pressure 147/67 178/81 178/88 O2 Sat by Pulse 99 96 Oximetry General appearance: Present: no acute distress - EENT Eyes: PERRL, EOM intact ENT: hearing intact - Neck Neck: supple - Respiratory Respiratory effort: normal Extremities: abnormal (right pedal interdigital infection) - Gastrointestinal General gastrointestinal: Present: deferred Rectal Exam: deferred - Genitourinary Male genitourinary: deferred - Psychiatric Psychiatric: cooperative - Labs CBC & Chem 7: 01/24/17 04:48 01/24/17 04:48 Labs: Abnormal lab results 01/23/17 01/23/17 01/23/17 Range/Units 11:55 16:16 22:05 RBC (3.65-5.03) M/mm3 Hgb (11.8-15.2) gm/dl Hct (35.5-45.6) % RDW (13.2-15.2) % [place] % (Auto) (0.0-7.3) % Eos % (Auto) (0.0-4.3) % Lymph # (1.2-5.4) K/mm3 BUN (9-20) mg/dL Creatinine (0.8-1.5) mg/dL POC Glucose 120 H 163 H 189 H (70-105) 01/24/17 01/24/17 01/24/17 Range/Units 04:48 04:48 11:29 RBC 2.71 L (3.65-5.03) M/mm3 Hgb 7.8 L (11.8-15.2) gm/dl Hct 24.0 L (35.5-45.6) % RDW 17.5 H (13.2-15.2) % [place] % (Auto) 10.1 H (0.0-7.3) % Eos % (Auto) 5.0 H (0.0-4.3) % Lymph # 0.8 L (1.2-5.4) K/mm3 BUN 24 H (9-20) mg/dL Creatinine 8.2 H (0.8-1.5) mg/dL POC Glucose 129 H (70-105)
[2017-01-24] MEDS: APRESOLINE PO SCH ×2 (13:54→21:46)
--- NOTE | 2017-01-24 15:40 | Discharge Summary ---
Providers - Providers Date of Admission: 01/16/17 14:00 Date of discharge: 01/24/17 Attending physician: TRISHA DUQUE 01/16/17 11:04 Consult to Physician [CONS] Routine Consulting Provider: ELIAS YEN Reason For Exam: Infection RLE Place consult to:: telephone/ left mess Notified:: yes Phone number called:: [phone] Time called:: 15:10 Comment:: sebastian 01/16/17 16:13 Consult to Physician [CONS] Routine Consulting Provider: TRISHA DUQUE Reason For Exam: medical management Place consult to:: Hospitalist Notified:: yes Phone number called:: [phone] Was contact made?: Yes If yes, spoke with:: dr. duque Time called:: 16:34 Comment:: sebastian 01/16/17 16:35 Consult to Physician [CONS] Routine Consulting Provider: PRECIOUS DEL RIO Reason For Exam: Management of Renal failure Place consult to:: answering service Notified:: yes Phone number called:: [phone] Was contact made?: No If yes, spoke with:: mary Time called:: 17:39 Comment:: sebastian 01/17/17 16:27 Consult to Wound/ET Nurse [CONS] Routine Reason For Exam: wound eval 01/18/17 12:53 Consult to Physician [CONS] Routine Consulting Provider: MAI CHANEY Reason For Exam: gangrene Place consult to:: Notified:: Phone number called:: [phone] Was contact made?: Yes If yes, spoke with:: Time called:: 14:31 Comment:: SAID WILL SEE THE PATIENT ON FRIDAY. 01/18/17 12:54 Consult to Physician [CONS] Routine Consulting Provider: ELIAS YEN Reason For Exam: gangrene Place consult to:: Notified:: Phone number called:: [phone] Was contact made?: Yes If yes, spoke with:: Time called:: 16:01 Comment:: PATRICE 01/20/17 11:50 Physical Therapy Evaluation and Treat [CONS] Routine Comment: Reason For Exam: right foot infection 01/20/17 13:40 Consult to Case Management [CONS] Routine Services Needed at Discharge: Home Health Services Notified:: HERMINIA Comment:: Evaluate for HH Nursing for wound care, and PT for HH Physical therapy. 01/22/17 10:51 Consult to Wound/ET Nurse [CONS] Routine Reason For Exam: please evaluate right foot toe interspaces Primary care physician: [facility] [employer] ATTENDANT Hospitalization Reason for admission: PVD with ulcer, and ischemic rest pain Condition: Stable Procedures: Operative Report Operative Report: EXAM: RIGHT LOWER EXTREMITY REVASCULARIZATION CLINICAL INDICATION: PERIPHERAL VASCULAR DISEASE WITH REST PAIN DATE: 01/17/2017 PROCEDURE: Following an explanation of the risks, benefits and alternatives; written informed consent was obtained. The patient was brought to the angiographic suite and placed in supine position on the examination table. Initial ultrasound evaluation of the left leg demonstrated a patent left common femoral artery. The patient's left groin was prepped and draped in the usual sterile fashion. 1% lidocaine was used for anesthesia. Under ultrasound guidance, the left common femoral artery was cannulated with a 7 cm 21-gauge needle. A 0.018 guidewire was advanced centrally. The needle was removed and a micro-sheath placed. The 0.018 guidewire was exchanged for a 0.035 guidewire in the micro-sheath exchanged for a 5 [place] vascular sheath. An Omni flush catheter was placed over the guidewire advanced to the distal abdominal aorta. Angiography was performed at that point. This demonstrates a patent distal abdominal aorta, bilateral common iliac arteries and bilateral external iliac arteries. The bifurcation was crossed using the Omni flush catheter and guidewire and the catheter tip positioned in the distal right external iliac artery. Angiography was performed which demonstrates scattered arthroscopic disease involving the right common femoral artery with 20% luminal narrowing. There is 50% stenosis involving the origin of the SFA. The profundus is patent. The catheter was advanced over the guidewire into the proximal SFA. Imaging of the SFA was then performed which demonstrates significant diffuse atherosclerotic disease involving the entire SFA narrowing the lumen at times to within 80%. The proximal popliteal artery also demonstrates diffuse atherosclerotic disease. Within the distal popliteal artery tibioperoneal trunk and below the knee vessels, there is under filling secondary to decreased inflow. The Omni flush catheter was removed over the guidewire and a 4 [place] vertebral catheter advanced over the guidewire. Together the guidewire and catheter were advanced into the tibioperoneal trunk. The guidewire was removed and a 5 mm spider wire advanced through the vertebral catheter and positioned within the distal popliteal artery. The vertebral catheter was removed. Atherectomy was performed using a 2.1/3.0 crown Beem atherectomy device. Atherectomy was performed using both blades up and blades down technique within the SFA and blades down technique in the popliteal artery. Posterior atherectomy angioplasty was performed using a 4 mm balloon in the popliteal artery and a 5 mm balloon throughout the length of the SFA. Post atherectomy imaging demonstrated scattered areas of luminal narrowing of 20-30%. At this point, 3 millimeter by 100 mm Lutonix drug-coated balloons deployed in the proximal mid and distal SFA. The balloons were insufflated to nominal pressure for 3 minutes each. Post and requesting imaging demonstrated reduction of the persistent areas of scattered luminal narrowing to 10-20%. At this point, the catheters, guidewires and sheaths were removed and hemostasis achieved using an Angio-Seal arterial closure device. A sterile dressing was then applied. The patient tolerated the procedure well. There were no immediate post procedure complications. Conscious sedation was performed under the guidance of radiologic nursing. Continuous cardiopulmonary monitering was utilized. IMPRESSION: 1) Right lower extremity angiography and aortography demonstrating diffuse hemodynamically significant stenosis involving the length of the SFA and popliteal artery. 2) Revascularization of the right SFA and popliteal arteries using atherectomy, angioplasty and drug coated balloons. Hospital course: Pt was admitted from our office with non-healing ulcerations to the [facility] with ischemic rest pain in preparation for revascularization. A consult was placed to the hospitalist as well as to the nephrology service to assist with medical management. The procedure was performed as stated above without complication. Post-operatively an ET nurse consult was placed, to arrange for LWC. A consult was placed to PT to increase activity. Pt was limited in his ability to ambulate , and take care of ADL. D/c planning was initiated for sub-acute rehab. Pt was accepted by the outside facility, and he will be discharged. He should f/u at our office in 2 weeks, and will need to call for an appt. Disposition: [id number] SNF W [facility] CERT - Discharge Diagnoses (1) Atherosclerosis of [place] arteries of the extremities with ulceration Status: Acute Core Measure Documentation - Palliative Care Palliative Care/ Comfort Measures: Not Applicable - Core Measures Any of the following diagnoses?: none Exam - Constitutional Vitals: Temp Pulse Resp BP Pulse Ox 98.4 F 58 L 20 158/70 96 01/24/17 13:45 01/24/17 15:00 01/24/17 13:45 01/24/17 15:00 01/24/17 07:00 General appearance: Present: no acute distress - EENT Eyes: Present: EOM intact ENT: hearing intact - Respiratory Respiratory effort: normal - Extremities Extremities: no ischemia Extremity abnormal: ulceration (Interdigital ulcerations to the toes of his right foot.) - Psychiatric Psychiatric: appropriate mood/affect, cooperative - Neurologic Neurologic: no focal deficits Plan Activity: advance as tolerated Weight Bearing Status: Weight Bear as Tolerated Diet: renal Wound: per wound nurse instructions Follow up with: OLGA LIDIA SANCHEZ MD [Staff Physician] - 14 Days Prescriptions: Clopidogrel [Plavix] 75 mg PO QDAY #30 tablet
[2017-01-24] MEDS ORDERED: NACL 0.9 (PRIMING MACHINE ONLY DIALYSIS) MC ONE (16:27)
[2017-01-24] MEDS: ARICEPT PO SCH (21:48)
[2017-01-24] MEDS: ZOCOR PO SCH (21:48)
[2017-01-24] MEDS: TYLENOL PO PRN (22:17)
--- NOTE | 2017-01-24 23:49 | Progress Note ---
Assessment and Plan - Patient Problems (1) PAD (peripheral artery disease) Current Visit: Yes Status: Acute Plan to address problem: Severe.For Angiography and surgical intervention by IR/Vascular surgery (2) Gangrene Current Visit: Yes Status: Chronic Plan to address problem: On IV zosyn and vancomycin (3) ESRD (end stage renal disease) Current Visit: Yes Status: Chronic Plan to address problem: Nephrology consulted (4) HTN (hypertension) Current Visit: Yes Status: Acute Qualifiers: Hypertension type: H Plan to address problem: Cont Coreg and verapamil (5) HLD (hyperlipidemia) Current Visit: Yes Status: Chronic Qualifiers: Hyperlipidemia type: mixed hyperlipidemia Qualified Code(s): E78.2 - Mixed hyperlipidemia Plan to address problem: On Statins (6) GERD (gastroesophageal reflux disease) Current Visit: Yes Status: Chronic Qualifiers: Esophagitis presence: without esophagitis Qualified Code(s): K21.9 - Gastro -esophageal reflux disease without esophagitis Plan to address problem: Cont PPI's (7) DVT prophylaxis Current Visit: Yes Status: Acute Plan to address problem: on Heparin (8) Discharge planning issues Current Visit: Yes Status: Acute Plan to address problem: Patient discharged May go today or tomorrow Subjective Date of service: 01/24/17 Principal diagnosis: PVD; Right Foot Ischemia Interval history: Doing well Objective - Constitutional Vitals: Vital Signs - 12hr 01/24/17 01/24/17 01/24/17 13:45 14:00 14:15 Temperature 98.4 F Pulse Rate 66 62 60 Respiratory 20 Rate Blood Pressure 164/75 158/75 154/68 O2 Sat by Pulse Oximetry 01/24/17 01/24/17 01/24/17 14:30 14:45 15:00 Temperature Pulse Rate 59 L 60 58 L Respiratory Rate Blood Pressure 145/70 159/68 158/70 O2 Sat by Pulse Oximetry 01/24/17 01/24/17 01/24/17 15:15 15:30 15:45 Temperature Pulse Rate 58 L 63 60 Respiratory Rate Blood Pressure 161/70 163/76 154/60 O2 Sat by Pulse Oximetry 01/24/17 01/24/17 01/24/17 16:00 16:15 16:30 Temperature Pulse Rate 57 L 58 L 57 L Respiratory Rate Blood Pressure 154/57 148/68 157/66 O2 Sat by Pulse Oximetry 01/24/17 01/24/17 01/24/17 16:45 17:00 17:15 Temperature Pulse Rate 57 L 64 85 Respiratory Rate Blood Pressure 153/65 130/57 122/47 O2 Sat by Pulse Oximetry 01/24/17 01/24/17 01/24/17 17:51 20:00 21:46 Temperature 99.1 F 98.9 F Pulse Rate 60 57 L 62 Respiratory 20 20 Rate Blood Pressure 119/48 117/58 100/60 O2 Sat by Pulse 99 Oximetry 01/24/17 01/24/17 21:47 22:17 Temperature Pulse Rate 62 Respiratory 18 Rate Blood Pressure 100/60 O2 Sat by Pulse Oximetry - Labs CBC & Chem 7: 01/25/17 04:28 01/25/17 04:28 Labs: Abnormal lab results 01/24/17 01/24/17 01/24/17 Range/Units 04:48 04:48 11:29 RBC 2.71 L (3.65-5.03) M/mm3 Hgb 7.8 L (11.8-15.2) gm/dl Hct 24.0 L (35.5-45.6) % RDW 17.5 H (13.2-15.2) % [place] % (Auto) 10.1 H (0.0-7.3) % Eos % (Auto) 5.0 H (0.0-4.3) % Lymph # 0.8 L (1.2-5.4) K/mm3 BUN 24 H (9-20) mg/dL Creatinine 8.2 H (0.8-1.5) mg/dL POC Glucose 129 H (70-105) 01/24/17 Range/Units 22:05 RBC (3.65-5.03) M/mm3 Hgb (11.8-15.2) gm/dl Hct (35.5-45.6) % RDW (13.2-15.2) % [place] % (Auto) (0.0-7.3) % Eos % (Auto) (0.0-4.3) % Lymph # (1.2-5.4) K/mm3 BUN (9-20) mg/dL Creatinine (0.8-1.5) mg/dL POC Glucose 140 H (70-105)
[2017-01-25] MEDS: COREG PO SCH ×3 (03:28→23:28)
[2017-01-25 05:12] LABS: Basophils % (Auto) 0.3 % (0.0-1.8); Eosinophils % (Auto) 4.9 % (0.0-4.3); Hematocrit 24.1 % (35.5-45.6); Hemoglobin 7.7 gm/dl (11.8-15.2); Mean Corpuscular HGB Conc 32 % (32-34); Mean Corpuscular Hemoglobin 29 pg (28-32); Mean Corpuscular Volume 89 fl (84-94); Platelet Count 262 K/mm3 (140-440); Red Blood Count 2.71 M/mm3 (3.65-5.03); Red Cell Distribution Width 17.8 % (13.2-15.2); White Blood Count 5.1 K/mm3 (4.5-11.0)
[2017-01-25 05:33] LABS: BUN/Creatinine Ratio 1.96; Calcium 8.9 mg/dL (8.4-10.2)
[2017-01-25 05:34] LABS: Potassium 3.8 mmol/L (3.6-5.0)
--- NOTE | 2017-01-25 10:07 | Progress Note ---
Assessment and Plan Assessment and plan: Peripheral vascular disease. s/p RLE revascularization w/ atherectomy, angioplasty and drug coated balloons. Gangrene. ? Osteomyelitis. Continue IV antibiotics. ID following. ESRD. Nephrology following. Continue hemodialysis. Anemia of CKD. Continue to monitor H&H and transfuse for hemoglobin less than 7. Continue Epogen. Hypertension. Continue Coreg and verapamil. Hyperlipidemia. Continue statins. Hypokalemia. Replete potassium. GERD. Continue PPIs. Tobacco abuse. Start nicotine patch. DVT prophylaxis. Continue heparin. Disposition. Patient is awaiting SNF placement. We will sign off. Call if needed. History Interval history: No new issues overnight. Hospitalist Physical - Constitutional Vitals: Temp Pulse Resp BP Pulse Ox 98.7 F 68 20 196/88 99 01/25/17 08:00 01/25/17 08:00 01/25/17 08:00 01/25/17 08:00 01/25/17 08:00 General appearance: Present: no acute distress - EENT Eyes: Present: PERRL, EOM intact ENT: hearing intact, clear oral mucosa, dentition normal - Neck Neck: Present: supple, normal ROM - Respiratory Respiratory effort: normal Respiratory: bilateral: CTA - Cardiovascular Rhythm: regular Heart Sounds: Present: S1 & S2. Absent: gallop, rub - Extremities Extremities: no ischemia, No edema, Full ROM - Abdominal General gastrointestinal: soft, non-tender, non-distended, normal bowel sounds - Integumentary Integumentary: Present: clear, warm, dry - Neurologic Neurologic: CNII-XII intact, moves all extremities Results - Labs CBC & Chem 7: 01/25/17 04:28 01/25/17 04:28 Labs: Laboratory Last Values WBC 5.1 K/mm3 (4.5-11.0) 01/25/17 04:28 RBC 2.71 M/mm3 (3.65-5.03) L 01/25/17 04:28 Hgb 7.7 gm/dl (11.8-15.2) L 01/25/17 04:28 Hct 24.1 % (35.5-45.6) L 01/25/17 04:28 MCV 89 fl (84-94) 01/25/17 04:28 MCH 29 pg (28-32) 01/25/17 04:28 MCHC 32 % (32-34) 01/25/17 04:28 RDW 17.8 % (13.2-15.2) H 01/25/17 04:28 Plt Count 262 K/mm3 (140-440) 01/25/17 04:28 Lymph % (Auto) 16.0 % (13.4-35.0) 01/25/17 04:28 [place] % (Auto) 9.1 % (0.0-7.3) H 01/25/17 04:28 Eos % (Auto) 4.9 % (0.0-4.3) H 01/25/17 04:28 Baso % (Auto) 0.3 % (0.0-1.8) 01/25/17 04:28 Lymph # 0.8 K/mm3 (1.2-5.4) L 01/25/17 04:28 [place] # 0.5 K/mm3 (0.0-0.8) 01/25/17 04:28 Eos # 0.3 K/mm3 (0.0-0.4) 01/25/17 04:28 Baso # 0.0 K/mm3 (0.0-0.1) 01/25/17 04:28 Seg Neutrophils % 69.7 % (40.0-70.0) 01/25/17 04:28 Seg Neutrophils # 3.6 K/mm3 (1.8-7.7) 01/25/17 04:28 PT 14.7 Sec. (12.2-14.9) 01/16/17 15:31 INR 1.16 (0.87-1.13) H 01/16/17 15:31 APTT 29.7 Sec. (24.2-36.6) 01/16/17 15:31 Sodium 138 mmol/L (137-145) 01/25/17 04:28 Potassium 3.8 mmol/L (3.6-5.0) 01/25/17 04:28 Chloride 95.0 mmol/L (98-107) L 01/25/17 04:28 Carbon Dioxide 28 mmol/L (22-30) 01/25/17 04:28 Anion Gap 19 mmol/L 01/25/17 04:28 BUN 11 mg/dL (9-20) 01/25/17 04:28 Creatinine 5.6 mg/dL (0.8-1.5) H 01/25/17 04:28 Estimated GFR 12 ml/min 01/25/17 04:28 BUN/Creatinine Ratio 1.96 % 01/25/17 04:28 Glucose 121 mg/dL (75-100) H 01/25/17 04:28 POC Glucose 130 (70-105) H 01/25/17 06:15 Calcium 8.9 mg/dL (8.4-10.2) 01/25/17 04:28 Total Bilirubin 0.40 mg/dL (0.1-1.2) 01/16/17 15:31 AST 15 units/L (5-40) 01/16/17 15:31 ALT 8 units/L (7-56) 01/16/17 15:31 Alkaline Phosphatase 110 units/L (35-129) 01/16/17 15:31 Total Protein 7.7 g/dL (6.3-8.2) 01/16/17 15:31 Albumin 3.4 g/dL (3.9-5) L 01/16/17 15:31 Albumin/Globulin Ratio 0.8 % 01/16/17 15:31
[2017-01-25] MEDS: RENVELA PO SCH ×3 (10:56→19:32)
[2017-01-25] MEDS: ZOSYN/NS 2.25 GM/50ML 2.25 GM/50 ML BAG IV SCH ×3 (10:56→23:26)
[2017-01-25] MEDS: MONOKET PO SCH (10:56)
[2017-01-25] MEDS: PLAVIX PO SCH (10:57)
[2017-01-25] MEDS: PROTONIX PO SCH (10:57)
[2017-01-25] MEDS: HEPARIN SUB-Q SCH ×2 (10:58→22:55)
[2017-01-25] MEDS: CALAN SR PO SCH ×2 (11:07→23:27)
[2017-01-25] MEDS: HABITROL TD SCH (11:13)
--- NOTE | 2017-01-25 11:13 | Progress Note ---
Subjective Principal diagnosis: PVD; Right Foot Ischemia Interval history: Patient was evaluated today for follow-up on multiple renal related issues Tolerated dialysis treatment well no acute problems noted Vital labs intake and output medications were reviewed Current medications: Reviewed Social history:Reviewed Family history: Reviewed HEENT: No uremic order oral mucosa moist Neck: Supple without any thyromegaly not mass or JVD Chest: Clear to auscultation occasional basilar crackles posteriorly Heart: Regular rate and rhythm S1 and S2 heard no S3-S4 Abdomen: Soft nontender no voluntary guarding rigidity or rebound Extremity: Dry skin minimal edema Psychiatry: No agitation and aggression noted Assessment and plan End-stage renal disease patient is currently on maintenance hemodialysis on Friday balance today and Friday, patient tolerated dialysis treatment very well Osteomyelitis gangrene and peripheral arterial disease, needs follow-up with vascular as well as antibiotic Anemia and end-stage renal disease currently on erythropoietin 20,000 units with dialysis current hemoglobin is 7.8 was 7.4 on January 20, Bone mineral disorder patient is currently on Renvela avoid processed food accelerated hypertension consider adding hydralazine and follow anemia and end- stage renal disease to monitor and follow Secondary hyperparathyroidism monitor phosphorus as well as PTH level In general malnutrition risk is high and dialysis patient please consider high- protein diet We'll continue to follow and make recommendation from renal standpoint Objective - Vital Signs Vital signs: Vital Signs - 12hr 01/25/17 01/25/17 01/25/17 03:28 04:00 08:00 Temperature 98.8 F 98.7 F Pulse Rate 67 67 68 Respiratory 18 20 Rate Blood Pressure 184/66 184/66 196/88 O2 Sat by Pulse 98 99 Oximetry - Lab 01/25/17 04:28 01/25/17 04:28 Most recent lab results Calcium 8.9 mg/dL (8.4-10.2) 01/25/17 04:28
[2017-01-25] MEDS: NORCO 5/325 PO PRN ×2 (11:24→18:28)
[2017-01-25] MEDS: NOVOLOG SUB-Q SCH ×4 (11:52→23:30)
[2017-01-25] MEDS: APRESOLINE PO SCH ×2 (13:07→23:28)
--- NOTE | 2017-01-25 13:14 | Progress Note ---
Assessment and Plan 66-year-old male who presented with critical limb ischemia of the right lower extremity with wounds between his right toes. Patient will need Betadine application twice a day between his toes. Discussed with nurse. Reevaluate tomorrow. Discussed with piano case maker reports patient will not be discharged to until Friday due to difficulty getting in touch with the accepting facility. Subjective Date of service: 01/25/17 Principal diagnosis: PVD; Right Foot Ischemia Interval history: Right foot warm and well perfused. Patient has exquisite pain when the interdigit's areas of the right foot are evaluated. There is some open wounds between these areas. Recommend cleaning with Betadine until tomorrow at which point this can be reassessed. Objective - Constitutional Vitals: Vital Signs - 12hr 01/25/17 01/25/17 01/25/17 03:28 04:00 08:00 Temperature 98.8 F 98.7 F Pulse Rate 67 67 68 Respiratory 18 20 Rate Blood Pressure 184/66 184/66 196/88 O2 Sat by Pulse 98 99 Oximetry 01/25/17 01/25/17 11:07 13:07 Temperature Pulse Rate 72 70 Respiratory Rate Blood Pressure 152/65 131/62 O2 Sat by Pulse Oximetry General appearance: Present: no acute distress - EENT Eyes: EOM intact ENT: hearing intact - Respiratory Respiratory effort: normal Extremities: normal temperature (right foot), normal color (right foot) - Psychiatric Psychiatric: appropriate mood/affect, cooperative - Labs CBC & Chem 7: 01/25/17 04:28 01/25/17 04:28 Labs: Abnormal lab results 01/24/17 01/25/17 01/25/17 Range/Units 22:05 04:28 04:28 RBC 2.71 L (3.65-5.03) M/mm3 Hgb 7.7 L (11.8-15.2) gm/dl Hct 24.1 L (35.5-45.6) % RDW 17.8 H (13.2-15.2) % [place] % (Auto) 9.1 H (0.0-7.3) % Eos % (Auto) 4.9 H (0.0-4.3) % Lymph # 0.8 L (1.2-5.4) K/mm3 Chloride 95.0 L (98-107) mmol/L Creatinine 5.6 H (0.8-1.5) mg/dL Glucose 121 H (75-100) mg/dL POC Glucose 140 H (70-105) 01/25/17 Range/Units 06:15 RBC (3.65-5.03) M/mm3 Hgb (11.8-15.2) gm/dl Hct (35.5-45.6) % RDW (13.2-15.2) % [place] % (Auto) (0.0-7.3) % Eos % (Auto) (0.0-4.3) % Lymph # (1.2-5.4) K/mm3 Chloride (98-107) mmol/L Creatinine (0.8-1.5) mg/dL Glucose (75-100) mg/dL POC Glucose 130 H (70-105)
[2017-01-25] MEDS: BETADINE TP SCH ×2 (18:28→23:30)
[2017-01-25] MEDS: ARICEPT PO SCH (22:55)
[2017-01-25] MEDS: ZOCOR PO SCH (22:55)
[2017-01-26 05:10] LABS: Basophils % (Auto) 0.4 % (0.0-1.8); Eosinophils % (Auto) 4.1 % (0.0-4.3); Hematocrit 25.1 % (35.5-45.6); Hemoglobin 8.2 gm/dl (11.8-15.2); Mean Corpuscular HGB Conc 33 % (32-34); Mean Corpuscular Hemoglobin 29 pg (28-32); Mean Corpuscular Volume 89 fl (84-94); Platelet Count 249 K/mm3 (140-440); Red Blood Count 2.83 M/mm3 (3.65-5.03); Red Cell Distribution Width 18.1 % (13.2-15.2); White Blood Count 5.3 K/mm3 (4.5-11.0)
[2017-01-26 05:22] LABS: BUN/Creatinine Ratio 2.19; Calcium 8.9 mg/dL (8.4-10.2); Chloride 94.7 mmol/L (98-107); Potassium 3.7 mmol/L (3.6-5.0)
[2017-01-26] MEDS: ZOSYN/NS 2.25 GM/50ML 2.25 GM/50 ML BAG IV SCH ×3 (06:12→21:26)
[2017-01-26] MEDS: APRESOLINE PO SCH ×4 (06:14→21:26)
[2017-01-26] MEDS: NOVOLOG SUB-Q SCH ×4 (08:01→22:00)
[2017-01-26] MEDS: HABITROL TD SCH (09:57)
[2017-01-26] MEDS: PLAVIX PO SCH (09:58)
[2017-01-26] MEDS: CALAN SR PO SCH ×2 (09:58→21:27)
[2017-01-26] MEDS: PROTONIX PO SCH (09:59)
[2017-01-26] MEDS: MONOKET PO SCH (10:00)
[2017-01-26] MEDS: TYLENOL PO PRN (10:01)
[2017-01-26] MEDS: HEPARIN SUB-Q SCH ×2 (10:02→21:28)
[2017-01-26] MEDS: COREG PO SCH ×2 (10:02→21:26)
[2017-01-26] MEDS: BETADINE TP SCH ×2 (10:03→22:00)
[2017-01-26] MEDS: RENVELA PO SCH ×3 (10:09→18:30)
--- NOTE | 2017-01-26 10:58 | Progress Note ---
Subjective Principal diagnosis: PVD; Right Foot Ischemia Interval history: Patient was evaluated today for follow-up on multiple renal related issues patient has been tolerating dialysis treatment fairly well without any problems Events of 24 hours vitals labs indicative medications were reviewed Current medications: Reviewed Social history:Reviewed Family history: Reviewed HEENT: No uremic order oral mucosa moist Neck: Supple without any thyromegaly not mass or JVD Chest: Clear to auscultation occasional basilar crackles posteriorly Heart: Regular rate and rhythm S1 and S2 heard no S3-S4 Abdomen: Soft nontender no voluntary guarding rigidity or rebound Extremity: Dry skin minimal edema Psychiatry: No agitation and aggression noted Assessment and plan End-stage renal disease patient is currently on maintenance hemodialysis on Friday balance today and Friday ultrafiltration has been well-tolerated Patient does have history of severe peripheral artery disease along with osteomyelitis and gangrene Currently being followed by vascular surgeon Hemoglobin needs to be monitored closely partly this is resulting from blood loss as well as surgery and anemia of chronic renal failure' Monitor phosphorus and PTH periodically Blood pressure needs to monitor closely In general malnutrition risk is high and dialysis patient please consider high- protein diet We'll continue to follow and make recommendation from renal standpoint Objective - Vital Signs Vital signs: Vital Signs - 12hr 01/25/17 01/25/17 01/26/17 23:27 23:28 00:00 Temperature 98.7 F Pulse Rate 66 66 65 Respiratory 18 Rate Blood Pressure 170/79 170/79 131/61 O2 Sat by Pulse 97 Oximetry 01/26/17 01/26/17 01/26/17 06:14 08:15 09:58 Temperature 97.9 F Pulse Rate 64 66 66 Respiratory 20 Rate Blood Pressure 176/75 163/73 163/73 O2 Sat by Pulse 100 Oximetry 01/26/17 10:01 Temperature Pulse Rate Respiratory 20 Rate Blood Pressure O2 Sat by Pulse Oximetry - Lab 01/26/17 04:24 01/26/17 04:24 Most recent lab results Calcium 8.9 mg/dL (8.4-10.2) 01/26/17 04:24
--- NOTE | 2017-01-26 12:07 | Progress Note ---
Assessment and Plan 66-year-old male who presented with critical limb ischemia of the right lower extremity with wounds between his right toes. Patient will need Betadine application twice a day between his toes. There are large open wounds in the interdigitus areas between the 2nd, 3rd, and 4th toes and dry areas in the 1st and 2nd. Placed betadine gauze between his toes to keep them butressed apart and to control infection. Will need betadine for probably 1-2 days to the area, with betadine gauze placed between the areas. Then can be converted to a topical antibiotic with 2x2 gauze placed between the toes to butress them apart. Will need wound care at the SNF. May ultimately need HBOT. Discussed with case maker reports patient will not be discharged to until Friday due to difficulty getting in touch with the accepting facility. Subjective Date of service: 01/26/17 Principal diagnosis: PVD; Right Foot Ischemia Interval history: Right foot warm and well perfused. Patient has exquisite pain when the interdigit's areas of the right foot are evaluated. There is some open wounds between these areas. Objective - Constitutional Vitals: Vital Signs - 12hr 01/26/17 01/26/17 01/26/17 06:14 08:15 09:58 Temperature 97.9 F Pulse Rate 64 66 66 Respiratory 20 Rate Blood Pressure 176/75 163/73 163/73 O2 Sat by Pulse 100 Oximetry 01/26/17 10:01 Temperature Pulse Rate Respiratory 20 Rate Blood Pressure O2 Sat by Pulse Oximetry General appearance: Present: no acute distress - EENT Eyes: EOM intact ENT: hearing intact - Respiratory Respiratory effort: normal Extremities: normal temperature (right foot), normal color (right foot) Extremity abnormal: other - Labs CBC & Chem 7: 01/26/17 04:24 01/26/17 04:24 Labs: Abnormal lab results 01/25/17 01/25/17 01/26/17 Range/Units 11:59 16:40 04:24 RBC 2.83 L (3.65-5.03) M/mm3 Hgb 8.2 L (11.8-15.2) gm/dl Hct 25.1 L (35.5-45.6) % RDW 18.1 H (13.2-15.2) % [place] % (Auto) 8.3 H (0.0-7.3) % Lymph # 1.0 L (1.2-5.4) K/mm3 Chloride (98-107) mmol/L Creatinine (0.8-1.5) mg/dL POC Glucose 183 H 165 H (70-105) 01/26/17 01/26/17 Range/Units 04:24 11:30 RBC (3.65-5.03) M/mm3 Hgb (11.8-15.2) gm/dl Hct (35.5-45.6) % RDW (13.2-15.2) % [place] % (Auto) (0.0-7.3) % Lymph # (1.2-5.4) K/mm3 Chloride 94.7 L (98-107) mmol/L Creatinine 8.2 H (0.8-1.5) mg/dL POC Glucose 134 H (70-105)
[2017-01-26] MEDS: ZOCOR PO SCH (21:27)
[2017-01-26] MEDS: NORCO 5/325 PO PRN (21:27)
[2017-01-26] MEDS: ARICEPT PO SCH (21:27)
[2017-01-27] MEDS: NOVOLOG SUB-Q SCH ×3 (09:05→17:31)
[2017-01-27] MEDS: RENVELA PO SCH ×3 (09:05→16:40)
[2017-01-27] MEDS: APRESOLINE PO SCH ×2 (09:06→13:15)
[2017-01-27] MEDS: CALAN SR PO SCH ×2 (10:54→16:39)
[2017-01-27] MEDS: COREG PO SCH ×2 (10:55→16:37)
[2017-01-27] MEDS: MONOKET PO SCH ×2 (10:55→16:34)
[2017-01-27] MEDS: PLAVIX PO SCH ×2 (10:55→16:34)
[2017-01-27] MEDS: PROTONIX PO SCH ×2 (10:55→16:34)
[2017-01-27] MEDS: HEPARIN SUB-Q SCH (10:57)
--- NOTE | 2017-01-27 11:25 | Progress Note ---
Assessment and Plan D/c orders already entered. Awaiting arrangements to be completed. Discussed with wound anesthesiologist and critical care. Et to see today (prior to d/c) to establish wound care protocol to be followed upon d/c. - Patient Problems (1) Atherosclerosis of [id number] arteries of the extremities with ulceration Current Visit: Yes Status: Acute Subjective Date of service: 01/27/17 Principal diagnosis: PVD; Right Foot Ischemia Interval history: Pt awake. C/o continued pain to right foot with manipulation. Objective - Constitutional Vitals: Vital Signs - 12hr 01/27/17 01/27/17 01/27/17 06:39 08:25 10:39 Temperature 98.7 F 98.4 F 98.3 F Pulse Rate 71 63 61 Respiratory 18 20 18 Rate Blood Pressure 176/75 159/70 166/73 O2 Sat by Pulse 98 98 Oximetry General appearance: Present: no acute distress - EENT Eyes: EOM intact ENT: hearing intact - Respiratory Respiratory effort: normal Extremities: normal temperature Extremity abnormal: ulceration (Blackened superficial skin to the toes to the right foot. Betadine soaked candelario between toes.) - Neurologic Neurologic: no focal deficits - Psychiatric Psychiatric: appropriate mood/affect, cooperative - Labs CBC & Chem 7: 01/26/17 04:24 01/26/17 04:24 Labs: Abnormal lab results 01/26/17 01/26/17 01/26/17 Range/Units 11:30 16:47 21:14 POC Glucose 134 H 189 H 135 H (70-105) 01/27/17 Range/Units 06:30 POC Glucose 159 H (70-105)
[2017-01-27] MEDS ORDERED: NACL 0.9 (PRIMING MACHINE ONLY DIALYSIS) MC ONE (11:31)
[2017-01-27] MEDS: NORCO 5/325 PO PRN (13:17)
[2017-01-27] MEDS: BETADINE TP SCH (16:31)
[2017-01-27] MEDS: HABITROL TD SCH (16:33)
[2017-01-27 16:40] VITALS: BP 171/76
== END 2017-01-27 20:15 | DRG 270 ==
LOC: 3A 10:07 → UNDOADMIN 10:07 → CC2 14:00 → 3A 01-23 20:34
PROVIDERS: ADMIT Radiology Diagnostic Radiology; ATTEND Hospitalist
PROC: 04CK3ZZ Extirpation of Matter from Right Femoral Artery, Percutaneous Approach (ICD-10-PCS; principal; 2017-01-17)
PROC: 04CM3ZZ Extirpation of Matter from Right Popliteal Artery, Percutaneous Approach (ICD-10-PCS; 2017-01-17)
PROC: 047K3D1 Dilation of Right Femoral Artery with Intraluminal Device, using Drug-Coated Balloon, Percutaneous Approach (ICD-10-PCS; 2017-01-17)
PROC: 047M3D1 Dilation of Right Popliteal Artery with Intraluminal Device, using Drug-Coated Balloon, Percutaneous Approach (ICD-10-PCS; 2017-01-17)
PROC: 5A1D60Z (ICD-10-PCS; 2017-01-17)
PROC: B41D1ZZ Fluoroscopy of Aorta and Bilateral Lower Extremity Arteries using Low Osmolar Contrast (ICD-10-PCS; 2017-01-17)
DX: I70.261 Atherosclerosis of native arteries of extremities with gangrene, right leg (principal); N18.6 End stage renal disease; M86.8X6 Other osteomyelitis, lower leg; I12.0 Hypertensive chronic kidney disease with stage 5 chronic kidney disease or end stage renal disease; K21.9 Gastro-esophageal reflux disease without esophagitis; E78.5 Hyperlipidemia, unspecified; E87.6 Hypokalemia; F17.210 Nicotine dependence, cigarettes, uncomplicated; D63.1 Anemia in chronic kidney disease; L98.499 Non-pressure chronic ulcer of skin of other sites with unspecified severity; S91.109A Unspecified open wound of unspecified toe(s) without damage to nail, initial encounter; X58.XXXA Exposure to other specified factors, initial encounter; Y93.89 Activity, other specified; Z99.2 Dependence on renal dialysis; Z82.49 Family history of ischemic heart disease and other diseases of the circulatory system; Y92.89 Other specified places as the place of occurrence of the external cause; Y99.8 Other external cause status
CPT/HCPCS: 36415; 37225; 75710; 76937; 80048; 80053; 82962; 85025; 85610; 85730; 87040; 93924; 93925; C1724; C1760; C1769; C1884; C1887; C2623; G8978-GP; G8979-GP; J0690; J0885; J1200; J1644; J1815; J2250; J2543; J3010; J3370; J7030; J7040; J7050; Q9967